=== PATIENT | male | born 1955 | race Caucasian/White ===

== ENCOUNTER 2018-03-09 11:11 | Inpatient (IN) ==
--- NOTE | 2018-03-09 11:55 | Emergency Department Note ---
Disposition Clinical Impression: Gluteal abscess, VERNA (acute kidney injury) Cellulitis Qualifiers: Site of cellulitis: extremity Site of cellulitis of extremity: lower extremity Laterality: left Qualified Code(s): L03.116 - Cellulitis of left lower limb Sepsis Qualifiers: Sepsis type: sepsis due to unspecified organism Qualified Code(s): A41.9 - Sepsis, unspecified organism Hyperglycemia due to type 2 diabetes mellitus Qualifiers: Diabetes mellitus terminal superintendent insulin use: with terminal superintendent use Qualified Code(s): E11.65 - Type 2 diabetes mellitus with hyperglycemia Disposition: Admitted As Inpatient Condition: Fair Time of Disposition: 23:50 Skin/Abscess/FB HPI Chief complaint: ED Skin/Abscess/Foreign Body Stated complaint: Diabetic Skin Ulcer Time Seen by Provider: 03/09/18 11:21 Source: patient Mode of arrival: wheelchair Limitations: no limitations HPI Narrative: Michael Dixon is a 62 yr old male with a PMH of insulin dependent type 2 diabetes who presents with a CC of a diabetic ulcer/ abscess formation on his left buttock that began apprx 2-3 weeks ago. Patient reports that his sugars have been higher than normal lately, running in the mid 300's. He believes that his last Ac1 was over 10%. 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 Patient only endorses pain if he sits on the area and as long as he does not put pressure on the are he does not endorse any symptoms. He denies any f/c, nausea or vomiting. Tetanus is up to date Pt Subjective Complaint: abscess/boil Onset (ago): week(s) (roughly 2-3 weeks ago) Tetanus Up to Date: yes Location: buttocks (Left Buttock) Severity: mild Quality: aching (Pain when sitting ) Consistency: intermittent Improves with: other (Positional ) Worsens with: other (Pressure) Context: other (Insulin dependent diabetic ) Associated symptoms: Denies: fever, chills, nausea, vomiting, cough, shortness of breath Treatments prior to arrival: none, other (Sent from PCP ) Home Medications Medication Instructions Recorded Confirmed Allopurinol [Zyloprim 100 MG] 100 mg PO DAILY 03/09/18 03/09/18 Diltiazem [Cardizem] 30 mg PO HS 03/09/18 03/09/18 Furosemide [Lasix] 20 mg PO DAILY PRN 03/09/18 03/09/18 Gabapentin [Neurontin] 300 mg PO TID 03/09/18 03/09/18 Insulin Glargine,Hum.rec.anlog 50 unit SQ BID 03/09/18 03/09/18 [Lantus Solostar] Insulin LISPRO [Humalog Kwikpen 0 - 20 unit SQ BID 03/09/18 03/09/18 U-100] Metformin HCl [Glucophage] 1,000 mg PO BID 03/09/18 03/09/18 Omeprazole [PriLOSEC] 20 mg PO DAILY 03/09/18 03/09/18 RX: Amlodipine Besylate 2.5 mg PO DAILY 03/09/18 03/09/18 RX: hydroCHLOROthiazide 25 mg PO DAILY 03/09/18 03/09/18 [Hydrochlorothiazide] Allergies Allergy/AdvReac Type Severity Reaction Status Date / Time No Known Allergies Allergy Verified 02/22/18 12:17 All systems ED: reviewed and negative except as stated. Constitutional: Denies: fever, chills Eyes: Denies: vision change Cardiovascular: Denies: chest pain, palpitations Respiratory: Denies: dyspnea, wheezes Gastrointestinal: Denies: abdominal pain, nausea, vomiting Genitourinary: Denies: dysuria Integumentary: Reports: lesions (2 abscesses on left buttocks. One abscess draining purulent material) Neurological: Denies: headache Endocrine: Denies: polydipsia, polyuria Past Medical History - Past Medical History Medical history: Reports: diabetes, GERD, hyperlipidemia Psychiatric history: Reports: no psych history - Social History Smoking Status: Current every day smoker Smokeless Tobacco Status: No Alcohol use: Reports: none Drug use: Reports: none Physical Exam - General Limitations: no limitations General appearance: alert, in no apparent distress - ENT ENT exam: mucous membranes moist - Chest Chest inspection: Present: normal inspection, symmetric chest wall rise - Respiratory Respiratory exam: Present: normal lung sounds bilaterally. Absent: respiratory distress, wheezes - Cardiovascular Cardiovascular exam: Present: regular rate, normal rhythm. Absent: tachycardia - Abdominal Exam Abdominal exam: Present: soft, Non-Tender. Absent: distention, guarding, rebound - Extremities Exam Extremities exam: Absent: pedal edema - Expanded Lower Extremity Exam 1 - developing ulceration Neurovascular/Tendon exam: Present: sensory deficit - Neurological Exam Neurological exam: Present: alert - Psychiatric Psychiatric exam: Present: normal affect - Skin Skin exam: Present: other (draining ulceration/abscess apprx 8cm x 5cm on upper left buttock. Second abscess on lower left buttick with apprx [id number] of induration) Course Vital Signs Temperature 97.7 F 03/09/18 11:24 Respiratory Rate 18 03/09/18 11:24 Blood Pressure 118/69 03/09/18 11:24 Temperature 98.4 F 03/09/18 20:00 Pulse Rate 97 03/09/18 20:00 Respiratory Rate 14 03/09/18 20:00 Blood Pressure 137/76 03/09/18 20:00 O2 Sat by Pulse Oximetry 92 03/09/18 20:00 Oxygen Delivery Oxygen Delivery Room Air Skin/Abscess/Foreign Body - Lab Data Result diagrams: 03/09/18 12:27 03/09/18 12:27 Lab Results 03/09/18 03/09/18 03/09/18 Range/Units 12:27 12:27 12:27 WBC 24.0 H (4.3-11.1) K/mcL RBC 4.38 (4.19-5.50) M/mcL Hgb 12.1 L (12.9-16.9) g/dL Hct 37.1 L (37.5-50.1) % MCV 84.7 (83.0-100.0) fL MCH 27.6 L (28.0-33.3) pg MCHC 32.6 (31.6-35.5) g/dL RDW 12.6 (11.5-14.5) % Plt Count 388 (140-400) K/mcL MPV 10.7 (9.4-12.4) fL Immature Gran % 1.1 (0-4) % Seg Neutrophils % 81.0 % Lymphocytes % 8.3 % Monocytes % 7.6 % Eosinophils % 1.5 % Basophils % 0.5 % Neutrophils # 19.4 H (1.6-8.9) K/mcL Lymphocytes # 2.0 (0.6-4.6) K/mcL Monocytes # 1.8 H (0.0-1.3) K/mcL Eosinophils # 0.4 (0.0-0.6) K/mcL Basophils # 0.1 (0.0-0.2) K/mcL ESR (0-10) mm/hr Sodium 131 L (136-145) mEq/L Potassium 4.0 (3.5-5.1) mEq/L Chloride 91 L (98-107) mEq/L Carbon Dioxide 25 (23-29) mEq/L BUN 51 H (8-23) mg/dL Creatinine 1.96 H (0.70-1.30) mg/dL Est GFR ( Amer) 42 L (> 60) Est GFR (Non-Af Amer) 35 L (> 60) BUN/Creatinine Ratio 26 (6-26) Glucose 411 H (70-105) mg/dL Calculated Osmolality 303 H (280-300) Lactic Acid 3.6 H (0.5-2.2) mmol/L Calcium 9.8 (8.6-10.3) mg/dL Creatine Kinase 18 L (30-223) Units/L C-Reactive Protein (Less than 10) mg/L Urine Color (Yellow) Urine Clarity (Clear) Urine pH (5.0-8.0) pH Units Ur Specific [place] (1.010-1.025) Urine Protein (Neg-Trace) mg/dL Urine Glucose (UA) (Normal) mg/dL Urine Ketones (Negative) mg/dL Urine Blood (Negative) Urine Nitrite (Negative) Urine Bilirubin (Negative) Urine Urobilinogen (Normal) mg/dL Ur Leukocyte Esterase (Negative) Ur Culture Indicated? (NO) 03/09/18 03/09/18 03/09/18 Range/Units 12:27 12:27 15:56 WBC (4.3-11.1) K/mcL RBC (4.19-5.50) M/mcL Hgb (12.9-16.9) g/dL Hct (37.5-50.1) % MCV (83.0-100.0) fL MCH (28.0-33.3) pg MCHC (31.6-35.5) g/dL RDW (11.5-14.5) % Plt Count (140-400) K/mcL MPV (9.4-12.4) fL Immature Gran % (0-4) % Seg Neutrophils % % Lymphocytes % % Monocytes % % Eosinophils % % Basophils % % Neutrophils # (1.6-8.9) K/mcL Lymphocytes # (0.6-4.6) K/mcL Monocytes # (0.0-1.3) K/mcL Eosinophils # (0.0-0.6) K/mcL Basophils # (0.0-0.2) K/mcL ESR 80 H (0-10) mm/hr Sodium (136-145) mEq/L Potassium (3.5-5.1) mEq/L Chloride (98-107) mEq/L Carbon Dioxide (23-29) mEq/L BUN (8-23) mg/dL Creatinine (0.70-1.30) mg/dL Est GFR ( Amer) (> 60) Est GFR (Non-Af Amer) (> 60) BUN/Creatinine Ratio (6-26) Glucose (70-105) mg/dL Calculated Osmolality (280-300) Lactic Acid (0.5-2.2) mmol/L Calcium (8.6-10.3) mg/dL Creatine Kinase (30-223) Units/L C-Reactive Protein 151 H (Less than 10) mg/L Urine Color Yellow (Yellow) Urine Clarity Clear (Clear) Urine pH 6.0 (5.0-8.0) pH Units Ur Specific [place] 1.022 (1.010-1.025) Urine Protein Negative (Neg-Trace) mg/dL Urine Glucose (UA) >=1000 H (Normal) mg/dL Urine Ketones Negative (Negative) mg/dL Urine Blood Negative (Negative) Urine Nitrite Negative (Negative) Urine Bilirubin Negative (Negative) Urine Urobilinogen Normal (Normal) mg/dL Ur Leukocyte Esterase Negative (Negative) Ur Culture Indicated? NO (NO) 03/09/18 Range/Units 17:10 WBC (4.3-11.1) K/mcL RBC (4.19-5.50) M/mcL Hgb (12.9-16.9) g/dL Hct (37.5-50.1) % MCV (83.0-100.0) fL MCH (28.0-33.3) pg MCHC (31.6-35.5) g/dL RDW (11.5-14.5) % Plt Count (140-400) K/mcL MPV (9.4-12.4) fL Immature Gran % (0-4) % Seg Neutrophils % % Lymphocytes % % Monocytes % % Eosinophils % % Basophils % % Neutrophils # (1.6-8.9) K/mcL Lymphocytes # (0.6-4.6) K/mcL Monocytes # (0.0-1.3) K/mcL Eosinophils # (0.0-0.6) K/mcL Basophils # (0.0-0.2) K/mcL ESR (0-10) mm/hr Sodium (136-145) mEq/L Potassium (3.5-5.1) mEq/L Chloride (98-107) mEq/L Carbon Dioxide (23-29) mEq/L BUN (8-23) mg/dL Creatinine (0.70-1.30) mg/dL Est GFR ( Amer) (> 60) Est GFR (Non-Af Amer) (> 60) BUN/Creatinine Ratio (6-26) Glucose (70-105) mg/dL Calculated Osmolality (280-300) Lactic Acid 2.6 H (0.5-2.2) mmol/L Calcium (8.6-10.3) mg/dL Creatine Kinase (30-223) Units/L C-Reactive Protein (Less than 10) mg/L Urine Color (Yellow) Urine Clarity (Clear) Urine pH (5.0-8.0) pH Units Ur Specific [place] (1.010-1.025) Urine Protein (Neg-Trace) mg/dL Urine Glucose (UA) (Normal) mg/dL Urine Ketones (Negative) mg/dL Urine Blood (Negative) Urine Nitrite (Negative) Urine Bilirubin (Negative) Urine Urobilinogen (Normal) mg/dL Ur Leukocyte Esterase (Negative) Ur Culture Indicated? (NO) Attestation Statement - Attestation Attestation: I, Priyank Botello DO, examined this patient [id number] and my medical decision-making was reviewed with Pranav REYES-CHRISTIAN. I agree with the docum ented findings, disposition and treatment plan as described except to the extent set forth below. Please see my progress notes for details.
[2018-03-09] MEDS ORDERED: 0.9 % Sodium Chloride 1,000 ML IVC ONE ×2 (12:04→13:22)
[2018-03-09] MEDS ORDERED: Isovue-370 500 ML INFUS..BTL IV ONE (12:05)
[2018-03-09] MEDS ORDERED: Piperacillin/Tazobactam 3.375 GM in Water for inj. (sterile) 20 ML IVP ONE (12:06)
--- NOTE | 2018-03-09 12:08 | Emergency Department Note ---
Disposition Clinical Impression: Gluteal abscess, VERNA (acute kidney injury) Cellulitis Qualifiers: Site of cellulitis: extremity Site of cellulitis of extremity: lower extremity Laterality: left Qualified Code(s): L03.116 - Cellulitis of left lower limb Sepsis Qualifiers: Sepsis type: sepsis due to unspecified organism Qualified Code(s): A41.9 - Sepsis, unspecified organism Hyperglycemia due to type 2 diabetes mellitus Qualifiers: Diabetes mellitus [employer] worker insulin use: with alf use Qualified Code(s): E11.65 - Type 2 diabetes mellitus with hyperglycemia Disposition: Admitted As Inpatient Condition: Fair Time of Disposition: 16:26 Skin/Abscess/FB HPI Chief complaint: ED Skin/Abscess/Foreign Body Stated complaint: Diabetic Skin Ulcer Time Seen by Provider: 03/09/18 11:21 Source: patient Mode of arrival: wheelchair Limitations: no limitations Nursing Notes Reviewed: Yes Vital Signs Reviewed: Yes HPI Narrative: 62-year-old male history of insulin-dependent diabetes mellitus presents emergency department with abscess and buttock ulcer. 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 Reports over the past 2 to 3 weeks he is formed and ulcer to his left but oxygen that is now draining with a foul smell. Reports of any fever. His sugars have been running higher than usual mostly in the mid 300s. He states his sugars have been uncontrolled in the past. 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 It is painful to lay on his bottom. Denies any difficulty with urination or defecation. He denies any other co mplaints such as chest pain, shortness of breath, abdominal pain nausea or vomiting. No history of cardiac ischemic disease. No prior surgeries. His tetanus is up-to-date. States he is not bedbound but does not move much. He denies anticoagulant use. Pt Subjective Complaint: abscess/boil Location: buttocks (Left Buttock) Severity: mild Improves with: other (Positional ) Worsens with: other (Pressure) Associated symptoms: Denies: fever, chills, nausea, vomiting, cough, shortness of breath Home Medications Medication Instructions Recorded Confirmed Allopurinol [Zyloprim 100 MG] 100 mg PO DAILY 03/09/18 03/09/18 Amlodipine Besylate 2.5 mg PO DAILY 03/09/18 03/09/18 Diltiazem [Cardizem] 30 mg PO HS 03/09/18 03/09/18 Furosemide [Lasix] 20 mg PO DAILY PRN 03/09/18 03/09/18 Gabapentin [Neurontin] 300 mg PO TID 03/09/18 03/09/18 Insulin Glargine,Hum.rec.anlog 50 unit SQ BID 03/09/18 03/09/18 [Lantus Solostar] Insulin LISPRO [Humalog Kwikpen 0 - 20 unit SQ BID 03/09/18 03/09/18 U-100] Metformin HCl [Glucophage] 1,000 mg PO BID 03/09/18 03/09/18 Omeprazole [PriLOSEC] 20 mg PO DAILY 03/09/18 03/09/18 hydroCHLOROthiazide 25 mg PO DAILY 03/09/18 03/09/18 [Hydrochlorothiazide] Allergies Allergy/AdvReac Type Severity Reaction Status Date / Time No Known Allergies Allergy Verified 02/22/18 12:17 All systems ED: reviewed and negative except as stated. Review of Systems: As Per HPI Constitutional: Denies: fever, chills Eyes: Denies: vision change Cardiovascular: Denies: chest pain, palpitations Respiratory: Denies: dyspnea, wheezes Gastrointestinal: Denies: abdominal pain, nausea, vomiting Genitourinary: Denies: dysuria Integumentary: Reports: lesions (2 abscesses on left buttocks. One abscess draining purulent material) Neurological: Denies: headache Endocrine: Reports: polydipsia. Denies: polyuria Past Medical History - Past Medical History Attestation: Yes The following information was validated with the patient. Source: patient Medical history: Reports: diabetes, GERD, hyperlipidemia Psychiatric history: Reports: no psych history - Social History Smoking Status: Current every day smoker Smokeless Tobacco Status: No Alcohol use: Reports: none Drug use: Reports: none Physical Exam - General Limitations: no limitations General appearance: alert, other (Patient appears chronically ill) - Head Head exam: normocephalic - Eye Eye exam: Present: normal appearance, PERRL, EOMI. Absent: scleral icterus - ENT ENT exam: normal exam, normal oropharynx, mucous membranes moist - Neck Neck exam: Present: normal inspection, full ROM, trachea midline - Chest Chest inspection: Present: normal inspection, symmetric chest wall rise - Respiratory Respiratory exam: Present: normal lung sounds bilaterally. Absent: respiratory distress, wheezes - Cardiovascular Cardiovascular exam: Present: regular rate, normal rhythm, normal heart sounds - Expanded Cardiovascular Exam Peripheral pulses: 2+: radial (R), radial (L) - Abdominal Exam Abdominal exam: Present: soft, Non-Tender. Absent: tenderness, distention, guarding, rebound, rigidity - Male exam: Present: normal inspection. Absent: circumcised, testicular tenderness - Extremities Exam Extremities exam: Present: normal inspection, full ROM. Absent: tenderness, pedal edema - Back Exam Back exam: Present: normal inspection, full ROM. Absent: tenderness - Neurological Exam Neurological exam: Present: alert, oriented X3 - Psychiatric Psychiatric exam: Present: normal affect, normal mood - Skin Skin exam: Present: erythema. Absent: rash, cyanosis, diaphoresis - Expanded Skin Exam Type of lesion: Present: abscess, other (No crepitus around the perineum or scrotum, he has a large skin graft from prior MRSA infection to the right scapula) Distribution: back, LLE Description: Present: fluctuant, indurated 1 - Large lesion to the left gluteus with some necrotic tissue superficially with some active drainage concerning for abscess 2 - Large area of erythema and induration to the left leg below the gluteal fold, there is no crepitus Course Course Narrative: Patient presents with ulceration and abscess to left buttock and left lower extremity. Patient is afebrile mildly tachycardic. There is no palpable crepitus to the perineum or scrotum. There is some necrotic tissue to both sites with obvious fluctuance and drainage. Concern for soft tissue infection which includes Fornier Gangrene. Will check some basic labs which will include blood cultures, lactate, ESR, CRP as well as the CT of the abdomen and pelvis to better visualize the abscess. Patient will be recommended to be admitted if no surgical emergency is imminent. - Reevaluation(s) Reevaluation #1: Sepsis was identified. Patient has a significantly elevated leukocytosis and lactate level. He has received to liter normal saline. He remains hemodynamically stable. He has been started empirically on vancomycin and Zosyn given his history of M RSA infection as well as current likely soft tissue infection. Based on physical examination low suspicion for Nehemias Gangrene at this time. His creatinine level is significantly elevated represents acute kidney injury and possible dehydration. He is hyperglycemic which also attributes to his poor wound healing. CT scan of the abdomen and pelvis initially was ordered with contrast will now be noncontrast to further evaluate. Time: 13:15 Reevaluation #2: Patient CT scan shows multiple abscess with fluid filled a non-fluid filled structure. The one on the gluteal but off underreport showed some air but it is currently draining. There is none in the perineum. At this time patient would benefit admission for further treatment of the cellulitis and wound. He otherwise remains hemodynamically stable and is not meet septic shock. He may benefit from surgical consultation for possible debridement and drainage. He is in agreement with this plan at this time. He has been made NPO until further evaluation. Impression is gluteal abscess cellulitis sepsis hyperglycemia and acute kidney injury. - Consultations Consultation #1: On-call surgeon Dr. Tanner was consulted regarding the patient's abscess as requested by hospitalist. The surgeon will be happy to consult floor and evaluate the patient later today. In agreement with current antibiotic regimen. No further recommendations. Time: 16:05 Consultation #2: Spoke with on-call hospitalist calderon Vigil to admit for sepsis secondary to abscess and cellulitis. No further orders at this time Vital Signs Temperature 97.7 F 03/09/18 11:24 Respiratory Rate 18 03/09/18 11:24 Blood Pressure 118/69 03/09/18 11:24 Temperature 97.7 F 03/09/18 11:24 Pulse Rate 95 03/09/18 19:28 Respiratory Rate 16 03/09/18 19:28 Blood Pressure 135/66 03/09/18 19:28 O2 Sat by Pulse Oximetry 95 03/09/18 19:28 Oxygen Delivery Oxygen Delivery Room Air Skin/Abscess/Foreign Body - MDM Narrative Medical decision making narrative: Patient was discussed with my attending physician who agrees with ED management and final disposition. They independently evaluated the patient. Please refer to their attestation to this encounter for additional information. This note was generated by [employer] voice recognition software and as a result grammatical or spelling errors may occur using this program. - Medical Records Medical records reviewed: Yes I reviewed the patient's medical records. - Lab Data Lab results reviewed: Yes I reviewed the patient's lab results. Result diagrams: 03/09/18 12:27 03/09/18 12:27 Lab Results 03/09/18 03/09/18 03/09/18 Range/Units 12:27 12:27 12:27 WBC 24.0 H (4.3-11.1) K/mcL RBC 4.38 (4.19-5.50) M/mcL Hgb 12.1 L (12.9-16.9) g/dL Hct 37.1 L (37.5-50.1) % MCV 84.7 (83.0-100.0) fL MCH 27.6 L (28.0-33.3) pg MCHC 32.6 (31.6-35.5) g/dL RDW 12.6 (11.5-14.5) % Plt Count 388 (140-400) K/mcL MPV 10.7 (9.4-12.4) fL Immature Gran % 1.1 (0-4) % Seg Neutrophils % 81.0 % Lymphocytes % 8.3 % Monocytes % 7.6 % Eosinophils % 1.5 % Basophils % 0.5 % Neutrophils # 19.4 H (1.6-8.9) K/mcL Lymphocytes # 2.0 (0.6-4.6) K/mcL Monocytes # 1.8 H (0.0-1.3) K/mcL Eosinophils # 0.4 (0.0-0.6) K/mcL Basophils # 0.1 (0.0-0.2) K/mcL ESR (0-10) mm/hr Sodium 131 L (136-145) mEq/L Potassium 4.0 (3.5-5.1) mEq/L Chloride 91 L (98-107) mEq/L Carbon Dioxide 25 (23-29) mEq/L BUN 51 H (8-23) mg/dL Creatinine 1.96 H (0.70-1.30) mg/dL Est GFR ( Amer) 42 L (> 60) Est GFR (Non-Af Amer) 35 L (> 60) BUN/Creatinine Ratio 26 (6-26) Glucose 411 H (70-105) mg/dL Calculated Osmolality 303 H (280-300) Lactic Acid 3.6 H (0.5-2.2) mmol/L Calcium 9.8 (8.6-10.3) mg/dL Creatine Kinase 18 L (30-223) Units/L C-Reactive Protein (Less than 10) mg/L Urine Color (Yellow) Urine Clarity (Clear) Urine pH (5.0-8.0) pH Units Ur Specific [place] (1.010-1.025) Urine Protein (Neg-Trace) mg/dL Urine Glucose (UA) (Normal) mg/dL Urine Ketones (Negative) mg/dL Urine Blood (Negative) Urine Nitrite (Negative) Urine Bilirubin (Negative) Urine Urobilinogen (Normal) mg/dL Ur Leukocyte Esterase (Negative) Ur Culture Indicated? (NO) 03/09/18 03/09/18 03/09/18 Range/Units 12:27 12:27 15:56 WBC (4.3-11.1) K/mcL RBC (4.19-5.50) M/mcL Hgb (12.9-16.9) g/dL Hct (37.5-50.1) % MCV (83.0-100.0) fL MCH (28.0-33.3) pg MCHC (31.6-35.5) g/dL RDW (11.5-14.5) % Plt Count (140-400) K/mcL MPV (9.4-12.4) fL Immature Gran % (0-4) % Seg Neutrophils % % Lymphocytes % % Monocytes % % Eosinophils % % Basophils % % Neutrophils # (1.6-8.9) K/mcL Lymphocytes # (0.6-4.6) K/mcL Monocytes # (0.0-1.3) K/mcL Eosinophils # (0.0-0.6) K/mcL Basophils # (0.0-0.2) K/mcL ESR 80 H (0-10) mm/hr Sodium (136-145) mEq/L Potassium (3.5-5.1) mEq/L Chloride (98-107) mEq/L Carbon Dioxide (23-29) mEq/L BUN (8-23) mg/dL Creatinine (0.70-1.30) mg/dL Est GFR ( Amer) (> 60) Est GFR (Non-Af Amer) (> 60) BUN/Creatinine Ratio (6-26) Glucose (70-105) mg/dL Calculated Osmolality (280-300) Lactic Acid (0.5-2.2) mmol/L Calcium (8.6-10.3) mg/dL Creatine Kinase (30-223) Units/L C-Reactive Protein 151 H (Less than 10) mg/L Urine Color Yellow (Yellow) Urine Clarity Clear (Clear) Urine pH 6.0 (5.0-8.0) pH Units Ur Specific [place] 1.022 (1.010-1.025) Urine Protein Negative (Neg-Trace) mg/dL Urine Glucose (UA) >=1000 H (Normal) mg/dL Urine Ketones Negative (Negative) mg/dL Urine Blood Negative (Negative) Urine Nitrite Negative (Negative) Urine Bilirubin Negative (Negative) Urine Urobilinogen Normal (Normal) mg/dL Ur Leukocyte Esterase Negative (Negative) Ur Culture Indicated? NO (NO) 03/09/18 Range/Units 17:10 WBC (4.3-11.1) K/mcL RBC (4.19-5.50) M/mcL Hgb (12.9-16.9) g/dL Hct (37.5-50.1) % MCV (83.0-100.0) fL MCH (28.0-33.3) pg MCHC (31.6-35.5) g/dL RDW (11.5-14.5) % Plt Count (140-400) K/mcL MPV (9.4-12.4) fL Immature Gran % (0-4) % Seg Neutrophils % % Lymphocytes % % Monocytes % % Eosinophils % % Basophils % % Neutrophils # (1.6-8.9) K/mcL Lymphocytes # (0.6-4.6) K/mcL Monocytes # (0.0-1.3) K/mcL Eosinophils # (0.0-0.6) K/mcL Basophils # (0.0-0.2) K/mcL ESR (0-10) mm/hr Sodium (136-145) mEq/L Potassium (3.5-5.1) mEq/L Chloride (98-107) mEq/L Carbon Dioxide (23-29) mEq/L BUN (8-23) mg/dL Creatinine (0.70-1.30) mg/dL Est GFR ( Amer) (> 60) Est GFR (Non-Af Amer) (> 60) BUN/Creatinine Ratio (6-26) Glucose (70-105) mg/dL Calculated Osmolality (280-300) Lactic Acid 2.6 H (0.5-2.2) mmol/L Calcium (8.6-10.3) mg/dL Creatine Kinase (30-223) Units/L C-Reactive Protein (Less than 10) mg/L Urine Color (Yellow) Urine Clarity (Clear) Urine pH (5.0-8.0) pH Units Ur Specific [place] (1.010-1.025) Urine Protein (Neg-Trace) mg/dL Urine Glucose (UA) (Normal) mg/dL Urine Ketones (Negative) mg/dL Urine Blood (Negative) Urine Nitrite (Negative) Urine Bilirubin (Negative) Urine Urobilinogen (Normal) mg/dL Ur Leukocyte Esterase (Negative) Ur Culture Indicated? (NO) - Radiology Data Radiology results reviewed: Yes I reviewed the patient's radiology results. Abdomen/Pelvis CT 03/09/18 13:31 IMPRESSION: 1. Findings most compatible with an abscess within the left gluteal soft tissues measuring up to 6 cm in greatest dimension, as described in body of report. 2. Findings most compatible with subacute fractures of the posterior right 7th, 8th and 9th ribs. These are incompletely imaged on the current examination. If there is clinical concern for acute injury to the thorax, dedicated noncontrast CT of the thorax is recommended. 3. Possible cellulitis overlying the left greater trochanter, correlate with clinical exam. 4. Non-organized fluid collection within the soft tissues of the posterior left thigh measuring up to 4.8 cm, as described above. D/ / 03/09/2018 15:11:50 James Ford / isak Interpreting Provider: James Ford Attestation Statement - Attestation Attestation: I, Priyank Botello DO, examined this patient [id number] and my medical decision-making was reviewed with Dany Murcia DO , Resident Physician. I agree with the documented findings, disposition and treatment plan as described except to the extent set forth below. Please see my progress notes for details.
--- NOTE | 2018-03-09 13:07 | Emergency Department Note ---
Disposition Clinical Impression: Gluteal abscess, VERNA (acute kidney injury) Cellulitis Qualifiers: Site of cellulitis: extremity Site of cellulitis of extremity: lower extremity Laterality: left Qualified Code(s): L03.116 - Cellulitis of left lower limb Sepsis Qualifiers: Sepsis type: sepsis due to unspecified organism Qualified Code(s): A41.9 - Sepsis, unspecified organism Hyperglycemia due to type 2 diabetes mellitus Qualifiers: Diabetes mellitus knock out hand insulin use: with knock out hand use Qualified Code(s): E11.65 - Type 2 diabetes mellitus with hyperglycemia Disposition: Admitted As Inpatient Condition: Fair Referrals: NONE,PCP [Primary Care Provider] - Forms: ED Satisfaction Letter Time of Disposition: 17:51 General Adult HPI - General Chief complaint: ED Skin/Abscess/Foreign Body Stated complaint: Diabetic Skin Ulcer Time Seen by Provider: 03/09/18 11:21 Source: patient Mode of arrival: wheelchair Limitations: no limitations - History of Present Illness Pain Scale: 4 - Related Data Home Medications Medication Instructions Recorded Confirmed Allopurinol [Zyloprim 100 MG] 100 mg PO DAILY 03/09/18 03/09/18 Amlodipine Besylate 2.5 mg PO DAILY 03/09/18 03/09/18 Diltiazem [Cardizem] 30 mg PO HS 03/09/18 03/09/18 Furosemide [Lasix] 20 mg PO DAILY PRN 03/09/18 03/09/18 Gabapentin [Neurontin] 300 mg PO TID 03/09/18 03/09/18 Insulin Glargine,Hum.rec.anlog 50 unit SQ BID 03/09/18 03/09/18 [Lantus Solostar] Insulin LISPRO [Humalog Kwikpen 0 - 20 unit SQ BID 03/09/18 03/09/18 U-100] Metformin HCl [Glucophage] 1,000 mg PO BID 03/09/18 03/09/18 Omeprazole [PriLOSEC] 20 mg PO DAILY 03/09/18 03/09/18 hydroCHLOROthiazide 25 mg PO DAILY 03/09/18 03/09/18 [Hydrochlorothiazide] Allergies Allergy/AdvReac Type Severity Reaction Status Date / Time No Known Allergies Allergy Verified 02/22/18 12:17 Constitutional: Denies: fever, chills Eyes: Denies: vision change Cardiovascular: Denies: chest pain, palpitations Respiratory: Denies: dyspnea, wheezes Gastrointestinal: Denies: abdominal pain, nausea, vomiting Genitourinary: Denies: dysuria Integumentary: Reports: lesions (2 abscesses on left buttocks. One abscess draining purulent material) Neurological: Denies: headache Endocrine: Reports: polydipsia. Denies: polyuria Past Medical History - Past Medical History Medical history: Reports: diabetes, GERD, hyperlipidemia Psychiatric history: Reports: no psych history - Social History Smoking Status: Current every day smoker Smokeless Tobacco Status: No Alcohol use: Reports: none Drug use: Reports: none Physical Exam - General Limitations: no limitations General appearance: alert, in no apparent distress Course Vital Signs Temperature 97.7 F 03/09/18 11:24 Respiratory Rate 18 03/09/18 11:24 Blood Pressure 118/69 03/09/18 11:24 Temperature 97.7 F 03/09/18 11:24 Pulse Rate 85 03/09/18 16:29 Respiratory Rate 16 03/09/18 16:29 Blood Pressure 153/55 03/09/18 16:29 O2 Sat by Pulse Oximetry 96 03/09/18 16:29 Oxygen Delivery Oxygen Delivery Room Air Medical Decision Making - Lab Data Result diagrams: 03/09/18 12:27 03/09/18 12:27 Lab Results 03/09/18 03/09/18 03/09/18 Range/Units 12:27 12:27 12:27 WBC 24.0 H (4.3-11.1) K/mcL RBC 4.38 (4.19-5.50) M/mcL Hgb 12.1 L (12.9-16.9) g/dL Hct 37.1 L (37.5-50.1) % MCV 84.7 (83.0-100.0) fL MCH 27.6 L (28.0-33.3) pg MCHC 32.6 (31.6-35.5) g/dL RDW 12.6 (11.5-14.5) % Plt Count 388 (140-400) K/mcL MPV 10.7 (9.4-12.4) fL Immature Gran % 1.1 (0-4) % Seg Neutrophils % 81.0 % Lymphocytes % 8.3 % Monocytes % 7.6 % Eosinophils % 1.5 % Basophils % 0.5 % Neutrophils # 19.4 H (1.6-8.9) K/mcL Lymphocytes # 2.0 (0.6-4.6) K/mcL Monocytes # 1.8 H (0.0-1.3) K/mcL Eosinophils # 0.4 (0.0-0.6) K/mcL Basophils # 0.1 (0.0-0.2) K/mcL ESR (0-10) mm/hr Sodium 131 L (136-145) mEq/L Potassium 4.0 (3.5-5.1) mEq/L Chloride 91 L (98-107) mEq/L Carbon Dioxide 25 (23-29) mEq/L BUN 51 H (8-23) mg/dL Creatinine 1.96 H (0.70-1.30) mg/dL Est GFR ( Amer) 42 L (> 60) Est GFR (Non-Af Amer) 35 L (> 60) BUN/Creatinine Ratio 26 (6-26) Glucose 411 H (70-105) mg/dL Calculated Osmolality 303 H (280-300) Lactic Acid 3.6 H (0.5-2.2) mmol/L Calcium 9.8 (8.6-10.3) mg/dL Creatine Kinase 18 L (30-223) Units/L C-Reactive Protein (Less than 10) mg/L Urine Color (Yellow) Urine Clarity (Clear) Urine pH (5.0-8.0) pH Units Ur Specific [place] (1.010-1.025) Urine Protein (Neg-Trace) mg/dL Urine Glucose (UA) (Normal) mg/dL Urine Ketones (Negative) mg/dL Urine Blood (Negative) Urine Nitrite (Negative) Urine Bilirubin (Negative) Urine Urobilinogen (Normal) mg/dL Ur Leukocyte Esterase (Negative) Ur Culture Indicated? (NO) 03/09/18 03/09/18 03/09/18 Range/Units 12:27 12:27 15:56 WBC (4.3-11.1) K/mcL RBC (4.19-5.50) M/mcL Hgb (12.9-16.9) g/dL Hct (37.5-50.1) % MCV (83.0-100.0) fL MCH (28.0-33.3) pg MCHC (31.6-35.5) g/dL RDW (11.5-14.5) % Plt Count (140-400) K/mcL MPV (9.4-12.4) fL Immature Gran % (0-4) % Seg Neutrophils % % Lymphocytes % % Monocytes % % Eosinophils % % Basophils % % Neutrophils # (1.6-8.9) K/mcL Lymphocytes # (0.6-4.6) K/mcL Monocytes # (0.0-1.3) K/mcL Eosinophils # (0.0-0.6) K/mcL Basophils # (0.0-0.2) K/mcL ESR 80 H (0-10) mm/hr Sodium (136-145) mEq/L Potassium (3.5-5.1) mEq/L Chloride (98-107) mEq/L Carbon Dioxide (23-29) mEq/L BUN (8-23) mg/dL Creatinine (0.70-1.30) mg/dL Est GFR ( Amer) (> 60) Est GFR (Non-Af Amer) (> 60) BUN/Creatinine Ratio (6-26) Glucose (70-105) mg/dL Calculated Osmolality (280-300) Lactic Acid (0.5-2.2) mmol/L Calcium (8.6-10.3) mg/dL Creatine Kinase (30-223) Units/L C-Reactive Protein 151 H (Less than 10) mg/L Urine Color Yellow (Yellow) Urine Clarity Clear (Clear) Urine pH 6.0 (5.0-8.0) pH Units Ur Specific [place] 1.022 (1.010-1.025) Urine Protein Negative (Neg-Trace) mg/dL Urine Glucose (UA) >=1000 H (Normal) mg/dL Urine Ketones Negative (Negative) mg/dL Urine Blood Negative (Negative) Urine Nitrite Negative (Negative) Urine Bilirubin Negative (Negative) Urine Urobilinogen Normal (Normal) mg/dL Ur Leukocyte Esterase Negative (Negative) Ur Culture Indicated? NO (NO) 03/09/18 Range/Units 17:10 WBC (4.3-11.1) K/mcL RBC (4.19-5.50) M/mcL Hgb (12.9-16.9) g/dL Hct (37.5-50.1) % MCV (83.0-100.0) fL MCH (28.0-33.3) pg MCHC (31.6-35.5) g/dL RDW (11.5-14.5) % Plt Count (140-400) K/mcL MPV (9.4-12.4) fL Immature Gran % (0-4) % Seg Neutrophils % % Lymphocytes % % Monocytes % % Eosinophils % % Basophils % % Neutrophils # (1.6-8.9) K/mcL Lymphocytes # (0.6-4.6) K/mcL Monocytes # (0.0-1.3) K/mcL Eosinophils # (0.0-0.6) K/mcL Basophils # (0.0-0.2) K/mcL ESR (0-10) mm/hr Sodium (136-145) mEq/L Potassium (3.5-5.1) mEq/L Chloride (98-107) mEq/L Carbon Dioxide (23-29) mEq/L BUN (8-23) mg/dL Creatinine (0.70-1.30) mg/dL Est GFR ( Amer) (> 60) Est GFR (Non-Af Amer) (> 60) BUN/Creatinine Ratio (6-26) Glucose (70-105) mg/dL Calculated Osmolality (280-300) Lactic Acid 2.6 H (0.5-2.2) mmol/L Calcium (8.6-10.3) mg/dL Creatine Kinase (30-223) Units/L C-Reactive Protein (Less than 10) mg/L Urine Color (Yellow) Urine Clarity (Clear) Urine pH (5.0-8.0) pH Units Ur Specific [place] (1.010-1.025) Urine Protein (Neg-Trace) mg/dL Urine Glucose (UA) (Normal) mg/dL Urine Ketones (Negative) mg/dL Urine Blood (Negative) Urine Nitrite (Negative) Urine Bilirubin (Negative) Urine Urobilinogen (Normal) mg/dL Ur Leukocyte Esterase (Negative) Ur Culture Indicated? (NO) Attestation Statement - Attestation Attestation: I, Priyank Botello DO, examined this patient [id number] and my medical decision-making was reviewed with Dany Murcia DO , Resident Physician. I agree with the documented findings, disposition and treatment plan as described except to the extent set forth below. Please see my progress notes for details. 62-year-old male presents to the emergency room for evaluation of pain that is persistently getting worse and his buttock and left leg. Patient typically sits in a chair for extended periods of time home. He has 2 caretakers it helped with his chores throughout the day. Patient has poorly controlled diabetes. On presentation here his only complaint is the buttock pain and discomfort. Currently, he is denying chest pain, shortness of breath, headache, vision miranda ges, nausea, vomiting, diarrhea. No fevers or chills. Denied any falls trauma or injury. Denies any medications or changes in medications at this point. Tetanus shot is not currently up-to-date. On physical exam, vital signs are otherwise unremarkable on presentation. Patient is afebrile. Head is atraumatic. Mucous membranes are dry. Oropharynx is patent. Trachea is midline. Lungs are clear to auscultation. Heart is regular. Abdomen is soft nontender nondistended with no guarding no rigidity or peritoneal symptoms at this time. Left side of the buttock over the gluteal aspect of the medial time shows a large. Mineralization skin deterioration concerning for decubitus ulcer versus abscesses. Patient also has another area just distal to the gluteal fold on the medial aspect of the thigh. There is no crepitus deformity or injury noted to the perineum or genitalia. No visible signs of swelling warmth or irritation of the genitalia this time. Concern is noted for deterioration secondary pressure ulcer versus possible deep tissue infection. Antibiotic regimen will be started this time with vancomycin fluids blood cultures CBC chemistry urinalysis glucose testing and then CT with IV contrast of the abdomen will be completed at this point looking for any deep tissue involvement infection or possible abscess formation. Symptom control here in the emergency room and then disposition will be determined. No other acute etiology noted at this time. Continuation of care to be established. See detailed documentation of the physical exam, medical intervention, medical decision-making and disposition in the resident physician's note. No critical care applied to the patient's treatment course at this time 1315 Patient now has noted white blood cell count neutrophilia. We will consider him sepsis with a source of this point borderline severe sepsis secondary to the elevated lactic acid. Vital signs remain stable. Time of this diagnosis was 1315. [address] scan shows large abscesses in the buttock and medial gluteal fold of the left leg. No signs of free air or Nehemias's gangrene. Imaging was discussed with the on-call surgeon Dr. Dann Tanner. He agrees with medication and antibiotic regiment and then surgical evaluation the morning for possible wound debridement. Patient will be admitted at this time. Hospitalist Dr. Angel reviewed the case and had no other recommendations or concerns at this time. Patient will be admitted for continuation of care and symptomatic control. Patient is otherwise clinically stable. We will continue to monitor here in the emergency room until admission processes established. Labs were all reviewed. Chronic rib fractures are noted comparison to imaging from one year ago. No other acute findings at this time.
[2018-03-09 13:08] LABS: Basophils # 0.1 K/mcL (0.0-0.2); Basophils % 0.5 %; Eosinophils # 0.4 K/mcL (0.0-0.6); Eosinophils % 1.5 %; Hematocrit 37.1 % (37.5-50.1); Hemoglobin 12.1 g/dL (12.9-16.9); Immature Granulocytes % 1.1 % (0-4); Lymphocytes % 8.3 %; Mean Corpuscular HGB Conc 32.6 g/dL (31.6-35.5); Mean Corpuscular Hemoglobin 27.6 pg (28.0-33.3); Mean Corpuscular Volume 84.7 fL (83.0-100.0); Mean Platelet Volume 10.7 fL (9.4-12.4); Monocytes # 1.8 K/mcL (0.0-1.3); Monocytes % 7.6 %; Neutrophils # 19.4 K/mcL (1.6-8.9); Platelet Count 388 K/mcL (140-400); Red Blood Count 4.38 M/mcL (4.19-5.50); Red Cell Distribution Width 12.6 % (11.5-14.5)
[2018-03-09] MEDS ORDERED: Tdap (Boostrix) Vaccine 0.5 ML SYRINGE IM ONE (13:14)
[2018-03-09 13:27] LABS: Calcium 9.8 mg/dL (8.6-10.3)
[2018-03-09 16:09] LABS: Bilirubin,Urine Negative (Negative); Blood,Urine Negative (Negative); Clarity,Urine Clear (Clear); Color,Urine Yellow (Yellow); Glucose,Urine (UA) >=1000 mg/dL (Normal); Ketones,Urine Negative (Negative); Leukocyte Esterase,Urine Negative (Negative); Nitrite,Urine Negative (Negative); Protein,Urine Negative (Neg-Trace); Specific Gravity,Urine 1.022 (1.010-1.025); Urobilinogen,Urine Normal (Normal)
[2018-03-09] MEDS ORDERED: *HR* OxyCODONE Immed Rel 5 MG TABLET PO PRN (16:38)
[2018-03-09] MEDS ORDERED: Naloxone 0.4 MG/ML INJ IVP PRN (16:38)
[2018-03-09] MEDS ORDERED: Acetaminophen 325 MG TABLET PO PRN (16:38)
[2018-03-09] MEDS ORDERED: *HR* HYDROcodone/Acet 5/325 mg TABLET PO PRN (16:38)
[2018-03-09] MEDS ORDERED: 0.9 % Sodium Chloride 500 ML IVC PRN (16:39)
[2018-03-09] MEDS ORDERED: *HR* Dextrose 50 % in Water (Syg) 50 ML SYRINGE IVP PRN (16:42)
[2018-03-09] MEDS ORDERED: D5% in Water 1,000 ML IVC PRN (16:42)
[2018-03-09] MEDS ORDERED: Dextrose Gel 15 GM/37.5 ML TUBE PO PRN ×2 (16:42)
--- NOTE | 2018-03-09 16:55 | Internal Med History&Physical ---
Date of Encounter: 03/09/18 Time of Encounter: 16:45 Internal Medicine - H&P: HPI Chief complaint: L buttock ulcer Admitted From: Home History of present illness: Mr. Dixon is a 62 year old male with PMHx of DM, CKD, tobaccoabuse, presented to the ED with left buttock ulcer. Noticed it about 2-3 weeks ago but did not seek any medical advice as he didn't think it was serious enough. Patient however became concerned when it started draining purulent discharge about a week ago, which is foul smelling. States that it is also painful to sit on his buttock. No fever/chills or N/V. Denies any chest pain, SOB, cough, sputum production, change in bowel habits, or dysuria. His glucose have been poorly controlled recently as well and there is a question about his compliance to meds as well. In the ED, he was afebrile with heart rate of 95. BP stable. Initial workup showed leukocytosis of 24, lactic acid 3.6, ESR/CRP of 80/151 respectively. Cr 1.96 (baseline ~ 1.5). Glucose 411. Urinalysis was unremarkable. CT abdomen and pelvis showed left gluteal abscess as well as non- organized fluid collection in posterior thigh, in addition to cellulitis over L greater trochanteric region. Patient was given 2 L of fluid boluses, IV vancomycin/Zosyn, and admitted for further management. Past Med Surg Social Fam HX - Past Medical History Attestation: Yes The following information was validated with the patient. Medical history: diabetes, GERD, hyperlipidemia Psychiatric history: no psych history - Past Surgical History Additional surgical history: eye surgery - Social History Smoking Status: Current every day smoker Smokeless Tobacco Status: No Alcohol use: none Drug use: none - Family History Mother History Unknown: Yes Father History Unknown: Yes Internal Medicine - H&P: Meds Allopurinol [Zyloprim 100 MG] 100 mg PO DAILY 03/09/18 [History] Amlodipine Besylate 2.5 mg PO DAILY 03/09/18 [History] Diltiazem [Cardizem] 30 mg PO HS 03/09/18 [History] Furosemide [Lasix] 20 mg PO DAILY PRN 03/09/18 [History] Gabapentin [Neurontin] 300 mg PO TID 03/09/18 [History] Insulin Glargine,Hum.rec.anlog [Lantus Solostar] 50 unit SQ BID 03/09/18 [History] Insulin LISPRO [Humalog Kwikpen U-100] 0 - 20 unit SQ BID 03/09/18 [History] Metformin HCl [Glucophage] 1,000 mg PO BID 03/09/18 [History] Omeprazole [PriLOSEC] 20 mg PO DAILY 03/09/18 [History] hydroCHLOROthiazide [Hydrochlorothiazide] 25 mg PO DAILY 03/09/18 [History] Allergy/AdvReac Type Severity Reaction Status Date / Time No Known Allergies Allergy Verified 02/22/18 12:17 All Systems PM: A 10-system review of systems was performed and is negative for pertinent findings except as documented above in the HPI. - Constitutional Vitals: Temp Pulse Resp BP Pulse Ox 97.7 F 85 16 153/55 96 03/09/18 11:24 03/09/18 16:29 03/09/18 16:29 03/09/18 16:29 03/09/18 16:29 Exam: General: Alert and oriented, not in acute distress. HEENT:EOMI, pupils equal, round and reactive. Cardiovascular:Normal S1 & S2, No JVD. Pulse regular. Lungs: clear to auscultation, no wheezes/rales Abdomen:Soft, non-tender, no rigidity. Extremities:No deformity or swelling Neurological:Normal cognition and motor skills. Non-focal Skin: L buttock: 7x8cm area of erythema with fluctuance and central areas of necrosis, no obvious discharge expressed. Another 5x6 cm area of induration and redness noted in posterior L thigh medially, also with areas of necrosis and fluctuance. Pulses: DP, PT palpable Rest of the physical exam is non contributory Internal Med - H&P Results - Labs CBC & Chem 7: 03/09/18 12:27 03/09/18 12:27 Labs: Short CBC 03/09/18 Range/Units 12:27 WBC 24.0 H (4.3-11.1) K/mcL Hgb 12.1 L (12.9-16.9) g/dL Hct 37.1 L (37.5-50.1) % Plt Count 388 (140-400) K/mcL Neutrophils # 19.4 H (1.6-8.9) K/mcL BMP 03/09/18 12:27 Sodium 131 L Potassium 4.0 Chloride 91 L Carbon Dioxide 25 BUN 51 H Creatinine 1.96 H Glucose 411 H Calcium 9.8 Urine 03/09/18 Range/Units 15:56 Urine Color Yellow (Yellow) Urine Clarity Clear (Clear) Urine pH 6.0 (5.0-8.0) pH Units Ur Specific [place] 1.022 (1.010-1.025) Urine Protein Negative (Neg-Trace) mg/dL Urine Glucose (UA) >=1000 H (Normal) mg/dL - Impressions ITS Impressions Abdomen/Pelvis CT 03/09/18 13:31 IMPRESSION: 1. Findings most compatible with an abscess within the left gluteal soft tissues measuring up to 6 cm in greatest dimension, as described in body of report. 2. Findings most compatible with subacute fractures of the posterior right 7th, 8th and 9th ribs. These are incompletely imaged on the current examination. If there is clinical concern for acute injury to the thorax, dedicated noncontrast CT of the thorax is recommended. 3. Possible cellulitis overlying the left greater trochanter, correlate with clinical exam. 4. Non-organized fluid collection within the soft tissues of the posterior left thigh measuring up to 4.8 cm, as described above. D/ / 03/09/2018 15:11:50 James Ford / isak Interpreting Provider: James Ford - Assessment and plan (1) Sepsis Current Visit: Yes Status: Suspected Assessment and plan: presented with L buttock abscess in the setting of WBC 24 and lactate 3.6. HR 95 initially as well 2/4 SIRS criteria complicated by poorly controlled DM started on vanc/zosyn, continue surgery consult for I&D, NPO for now but if the procedure is planned for tomorrow, please start ADA diet given 2L NS bolus in the ED, trend lactate mIVF, PRN fluid boluses for hypotension Qualifiers: Sepsis type: sepsis due to unspecified organism Qualified Code(s): A41.9 - Sepsis, unspecified organism (2) Gluteal abscess Current Visit: Yes Status: Acute Assessment and plan: as above (3) Hyperglycemia due to type 2 diabetes mellitus Current Visit: Yes Status: Acute Assessment and plan: poorly controlled, last A1c 02/2018 was 10 on lantus 50U BID and metformin hold off on metformin resume lantus and cover with moderate dose sliding scale NPO for now in anticipation for procedure -> if scheduled for tomorrow, start ADA diet Qualifiers: Diabetes mellitus terminal operations supervisor insulin use: with terminal operations supervisor use Qualified Code( s): E11.65 - Type 2 diabetes mellitus with hyperglycemia; Z79.4 - roasterman (current) use of insulin (4) Acute on chronic kidney failure Current Visit: Yes Status: Acute Assessment and plan: ATN vs. pre-renal given 2L fluid boluses in the ED continue maintenance IVF avoid nephrotoxins, renally adjusted abx Qualifiers: Acute renal failure type: unspecified Chronic kidney disease stage: stage 3 (moderate) Qualified Code(s): N17.9 - Acute kidney failure, unspecified; N18.3 - Chronic kidney disease, stage 3 (moderate) (5) PAD (peripheral artery disease) Current Visit: Yes Status: Chronic Assessment and plan: KEAGAN 0.54 on R, 0.76 on L in 08/2016 unsure why patient is not on ASA at home will benefit from ASA as outpatient (6) Tobacco abuse Current Visit: Yes Status: Chronic Assessment and plan: counselling given NRT (7) Hypertension Current Visit: Yes Status: Chronic Assessment and plan: Hold off on meds in view of borderline blood pressure and AoCKD Qualifiers: Hypertension type: essential hypertension Qualified Code(s): I10 - Essential (primary) hypertension (8) DVT prophylaxis Current Visit: Yes Status: Acute Assessment and plan: SQ heparin - Time Spent With Patient Total time spent is greater than 50% in coordination of care (as documented) at patient's floor/unit and/or counseling patient:
[2018-03-09] MEDS ORDERED: Insulin LISPRO 300 UNITS/3 ML VIAL SQ SCH (18:00)
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
[2018-03-09] MEDS: Piperacillin/Tazobactam 3.375 GM in 0.9 % Sodium Chloride Mini Bag 100 ML IVPB SCH (21:27)
[2018-03-09] MEDS: *HR* Heparin 5,000 UNIT/ML VIAL SQ SCH (21:27)
[2018-03-09] MEDS: Gabapentin 300 MG CAPSULE PO SCH (21:28)
[2018-03-09] MEDS: 0.9 % Sodium Chloride 1,000 ML IVC SCH (21:28)
[2018-03-09] MEDS: Insulin DETEMIR 100 UNIT/ML X5UNITS SQ SCH (21:28)
[2018-03-09] MEDS: Insulin LISPRO 300 UNITS/3 ML VIAL SQ SCH (21:29)
[2018-03-10] MEDS: Piperacillin/Tazobactam 3.375 GM in 0.9 % Sodium Chloride Mini Bag 100 ML IVPB SCH ×3 (03:49→21:50)
[2018-03-10 04:00] LABS: Basophils # 0.1 K/mcL (0.0-0.2); Basophils % 0.5 %; Eosinophils # 0.6 K/mcL (0.0-0.6); Eosinophils % 2.5 %; Hematocrit 31.6 % (37.5-50.1); Hemoglobin 10.6 g/dL (12.9-16.9); Immature Granulocytes % 0.9 % (0-4); Lymphocytes # 3.2 K/mcL (0.6-4.6); Lymphocytes % 14.1 %; Mean Corpuscular HGB Conc 33.5 g/dL (31.6-35.5); Mean Corpuscular Volume 83.6 fL (83.0-100.0); Mean Platelet Volume 10.1 fL (9.4-12.4); Monocytes # 1.5 K/mcL (0.0-1.3); Monocytes % 6.6 %; Neutrophils # 16.8 K/mcL (1.6-8.9); Platelet Count 333 K/mcL (140-400); Red Blood Count 3.78 M/mcL (4.19-5.50); Red Cell Distribution Width 12.7 % (11.5-14.5); Segmented Neutrophils % 75.4 %
[2018-03-10 04:24] LABS: BUN/Creatinine Ratio 24 (6-26); Blood Urea Nitrogen 33 mg/dL (8-23); Carbon Dioxide 28 mEq/L (23-29); Chloride 101 mEq/L (98-107); Glucose 125 mg/dL (70-105); Magnesium 1.7 mg/dL (1.6-2.6); Osmolality,Calculated 293 (280-300); Potassium 3.2 mEq/L (3.5-5.1); Sodium 137 mEq/L (136-145); eGFR For Non-African Americans 52 (> 60)
[2018-03-10] MEDS: *HR* Heparin 5,000 UNIT/ML VIAL SQ SCH ×2 (05:57→16:42)
[2018-03-10] MEDS: Nicotine 21 MG PATCH.TD24 TD SCH (08:07)
[2018-03-10] MEDS: Gabapentin 300 MG CAPSULE PO SCH ×3 (08:08→21:49)
[2018-03-10] MEDS: Insulin DETEMIR 100 UNIT/ML X5UNITS SQ SCH ×2 (08:27→21:49)
--- NOTE | 2018-03-10 09:51 | Internal Med Progress Note ---
Hospitalist Progress Note - Encounter Date of Encounter: 03/10/18 Time of Encounter: 08:15 - Subjective Interval History: No acute events overnight. Denies any worsening pain or discharge over the left buttock. No fever/chills or nausea/vomiting. - Exam Vitals: Temp Pulse Resp BP Pulse Ox 100.7 F H 89 14 125/65 93 03/10/18 06:48 03/10/18 06:48 03/10/18 00:43 03/10/18 06:48 03/10/18 06:48 Exam: General: Alert and oriented, not in acute distress. Cardiovascular:Normal S1 & S2, No JVD. Pulse regular. Lungs: clear to auscultation, no wheezes/rales Abdomen:Soft, non-tender, no rigidity. Skin: L buttock: 7x8cm area of erythema with fluctuance and central areas of necrosis, no obvious discharge expressed. Another 5x6 cm area of induration and redness noted in posterior L thigh medially, also with areas of necrosis and fluctuance. Pulses: DP, PT palpable - Assessment and Plan (1) Sepsis Current Visit: Yes Status: Suspected Assessment and Plan: presented with L buttock abscess in the setting of WBC 24 and lactate 3.6. HR 95 initially as well 2/4 SIRS criteria complicated by poorly controlled DM WBC and lactate improving D2 vanc/zosyn, continue For I&D later today PRN fluid boluses for hypotension (2) Gluteal abscess Current Visit: Yes Status: Acute Assessment and Plan: as above (3) Hyperglycemia due to type 2 diabetes mellitus Current Visit: Yes Status: Acute Assessment and Plan: poorly controlled, last A1c 02/2018 was 10 on lantus 50U BID and metformin hold off on metformin decrease dose of levemir as he had 1 episode of asymptomatic hypoglycemia NPO till I&D (4) Acute on chronic kidney failure Current Visit: Yes Status: Resolved Assessment and Plan: ATN vs. pre-renal given 2L fluid boluses in the ED followed by maintenance fluid overnight improved, Cr at baseline continue maintenance IVF till surgery avoid nephrotoxins, renally adjusted abx (5) PAD (peripheral artery disease) Current Visit: Yes Status: Chronic Assessment and Plan: KEAGAN 0.54 on R, 0.76 on L in 08/2016 unsure why patient is not on ASA at home will benefit from ASA as outpatient (6) Tobacco abuse Current Visit: Yes Status: Chronic Assessment and Plan: counselling given NRT (7) Hypertension Current Visit: Yes Status: Chronic Assessment and Plan: Hold off on meds in view of borderline blood pressure and AoCKD (8) DVT prophylaxis Current Visit: Yes Status: Acute Assessment and Plan: SQ heparin - Time Spent with Patient Total time spent is greater than 50% in coordination of care (as documented) at patient's floor/unit and/or counseling patient: Plan of Care Discussed with: patient Internal Medicine: Result - Labs CBC & Chem 7: 03/10/18 03:46 03/10/18 03:46 Labs: Short CBC 03/09/18 03/10/18 Range/Units 12:27 03:46 WBC 24.0 H 22.3 H (4.3-11.1) K/mcL Hgb 12.1 L 10.6 L D (12.9-16.9) g/dL Hct 37.1 L 31.6 L (37.5-50.1) % Plt Count 388 333 (140-400) K/mcL Neutrophils # 19.4 H 16.8 H (1.6-8.9) K/mcL BMP 03/09/18 03/10/18 12:27 03:46 Sodium 131 L 137 Potassium 4.0 3.2 L Chloride 91 L 101 Carbon Dioxide 25 28 BUN 51 H 33 H Creatinine 1.96 H 1.39 H Glucose 411 H 125 H Calcium 9.8 9.0 Urine 03/09/18 Range/Units 15:56 Urine Color Yellow (Yellow) Urine Clarity Clear (Clear) Urine pH 6.0 (5.0-8.0) pH Units Ur Specific [place] 1.022 (1.010-1.025) Urine Protein Negative (Neg-Trace) mg/dL Urine Glucose (UA) >=1000 H (Normal) mg/dL - Impressions Impressions Abdomen/Pelvis CT 03/09/18 13:31 IMPRESSION: 1. Findings most compatible with an abscess within the left gluteal soft tissues measuring up to 6 cm in greatest dimension, as described in body of report. 2. Findings most compatible with subacute fractures of the posterior right 7th, 8th and 9th ribs. These are incompletely imaged on the current examination. If there is clinical concern for acute injury to the thorax, dedicated noncontrast CT of the thorax is recommended. 3. Possible cellulitis overlying the left greater trochanter, correlate with clinical exam. 4. Non-organized fluid collection within the soft tissues of the posterior left thigh measuring up to 4.8 cm, as described above. D/ / 03/09/2018 15:11:50 James Ford / isak Interpreting Provider: James Ford Consult Discharge Plan - Plan Referrals: NONE,PCP [Primary Care Provider] - (1) Sepsis Qualifiers: Sepsis type: sepsis due to unspecified organism Qualified Code(s): A41.9 - Sepsis, unspecified organism (3) Hyperglycemia due to type 2 diabetes mellitus Qualifiers: Diabetes mellitus terminal system operator insulin use: with terminal system operator use Qualified Code(s): E11.65 - Type 2 diabetes mellitus with hyperglycemia; Z79.4 - intermediate project manager (current) use of insulin (4) Acute on chronic kidney failure Qualifiers: Acute renal failure type: unspecified Chronic kidney disease stage: stage 3 (moderate) Qualified Code(s): N17.9 - Acute kidney failure, unspecified; N18.3 - Chronic kidney disease, stage 3 (moderate) (7) Hypertension Qualifiers: Hypertension type: essential hypertension Qualified Code(s): I10 - Essential (primary) hypertension
[2018-03-10] MEDS ORDERED: Lidocaine -MPF 1% 5 ML AMPUL INFILT ONE (10:15)
--- NOTE | 2018-03-10 10:41 | Procedure Note ---
Date of procedure: 03/10/18 Pre-op diagnosis: #1 left thigh abscess #2 left gluteal abscess Post-op diagnosis: same Procedure: After informed consent the patient is positioned in the right lateral decubitus position. Timeout was taken and the patient is identified. Both abscesses are prepped and draped in sterile fashion utilizing Betadine solution and standard draping techniques. 5 mL of 1% lidocaine with epinephrine was injected in the gluteal abscess and the thigh abscess. Next The left gluteal abscess was addressed first. Incision and drainage with a #11 blade was carried out using a cross shaped incision into the abscess cavity. Hemostat was used to breakup any loculations. The pus was drained an abscess cavity was packed with one-inch iodoform tape. The left thigh abscess was then addressed. Incision and drainage with #11 blade is carried out using a cross shaped incision into the abscess cavity. Hemostat was used to breakup any loculations. All pus was drained. The left thigh abscess was then packed with one-inch iodoform tape. The patient tolerated the procedure very well. Dr. Tanner and Dr. Klein were present for the entire procedure Anesthesia: local Surgeon: Dann Tanner Was there an roofer assistant present: Yes Security Police Officer: Carlos Klein Estimated blood loss (cc): 5 Specimen: Aerobic and anaerobic cultures Pathology: none sent Condition: stable Disposition: floor
[2018-03-10] MEDS: Insulin LISPRO 300 UNITS/3 ML VIAL SQ SCH ×4 (11:15→21:50)
--- NOTE | 2018-03-10 11:53 | General Surgery Progress Note ---
<Carlos Klein S - Last Filed: 03/10/18 11:51> Date of Encounter: 03/10/18 Time of Encounter: 08:00 - Assessment and Plan (1) Gluteal abscess Current Visit: Yes Status: Acute CT evidence of left gluteal soft tissue measuring 6 cm in greatest dimension, cellulitis overlying the greater trochanter, and fluid collection within the soft tissue of the posterior left thigh Temp of 100.7 this AM WBC 24 > 22.3 today Patient on vancomycin and zosyn Blood cultures x2 Patient on IVF hydration at 100 ml/hr acetaminophen, norco and oxycodone for pain Prilosec for GI prophylaxis Will do bedside incision and drainage on gluteal and thigh abscesses today Restart diabetic diet after procedure (2) Cellulitis Current Visit: Yes Status: Acute Cellulitis near left trochanter on CT Physical exam shows large erythematous region overlying the same region See above for plan Qualifiers: Site of cellulitis: extremity Site of cellulitis of extremity: lower extremity Laterality: left Qualified Code(s): L03.116 - Cellulitis of left lower limb (3) Hyperglycemia due to type 2 diabetes mellitus Current Visit: Yes Status: Acute Management per primary team On med dose sliding scale insulin 30 units levemir BID Qualifiers: Diabetes mellitus exterminator termite insulin use: with exterminator termite use Qualified Code(s): E11.65 - Type 2 diabetes mellitus with hyperglycemia; Z79.4 - longterm (current) use of insulin (4) CKD (chronic kidney disease) Current Visit: Yes Status: Acute Management per primary team Cr 1.96 Continue IVF hydration Qualifiers: Chronic kidney disease stage: unspecified stage Qualified Code(s): N18.9 - Chronic kidney disease, unspecified Subjective Patient reports: no new complaints, feels better, still having pain, pain is less, flatus, afebrile Objective Vital Signs - Last 8 Hours Temp Pulse BP Pulse Ox 03/10/18 11:02 98.4 F 79 125/58 03/10/18 06:48 100.7 F H 89 125/65 93 Intake and Output 03/09/18 03/10/18 03/10/18 23:59 07:59 15:59 Intake Total 1300 / 1300 100 / 100 Balance 1300 / 1300 100 / 100 Intake: IV Fluids 1000 / 1000 100 / 100 0.9 % Sodium Chloride 1,000 ML 1000 / 1000 @ 3750 mls/hr IVC .Q16M [facility] Rx# :[id number] Zosyn 3.375 GM In 0.9 % Sodium 100 / 100 Chloride (Mini-Bag +) 100 ML @ 25 mls/hr IVPB Q8H [facility] Rx#: [id number] Oral 300 / 300 0 / 0 Other: Weight 76.2 kg 76.2 kg Blood Glucose* 338 71 Patient Weight 03/10/18 23:59 Weight 76.2 kg - General physical appearance no distress - Respiratory normal expansion, normal respiratory effort - Cardiovascular Cardiovascular exam: Present: RRR - Abdomen Abdomen: Present: bowel sounds present, soft, non tender - Integumentary other (abscess in left gluteal region draining purulent material, abscess in left upper inner thigh induration and fluctuance but not actively draining) - Psychiatric oriented to time, oriented to person, oriented to place - Labs 03/10/18 03:46 03/10/18 03:46 Diabetes panel 03/09/18 03/10/18 Range/Units 12:27 03:46 Sodium 131 L 137 (136-145) mEq/L Potassium 4.0 3.2 L (3.5-5.1) mEq/L Chloride 91 L 101 (98-107) mEq/L Carbon Dioxide 25 28 (23-29) mEq/L BUN 51 H 33 H (8-23) mg/dL Creatinine 1.96 H 1.39 H (0.70-1.30) mg/dL Glucose 411 H 125 H (70-105) mg/dL Calcium 9.8 9.0 (8.6-10.3) mg/dL Calcium panel 03/09/18 03/10/18 Range/Units 12:27 03:46 Calcium 9.8 9.0 (8.6-10.3) mg/dL Pituitary panel 03/09/18 03/10/18 Range/Units 12:27 03:46 Sodium 131 L 137 (136-145) mEq/L Potassium 4.0 3.2 L (3.5-5.1) mEq/L Chloride 91 L 101 (98-107) mEq/L Carbon Dioxide 25 28 (23-29) mEq/L BUN 51 H 33 H (8-23) mg/dL Creatinine 1.96 H 1.39 H (0.70-1.30) mg/dL Glucose 411 H 125 H (70-105) mg/dL Calcium 9.8 9.0 (8.6-10.3) mg/dL Adrenal panel 03/09/18 03/10/18 Range/Units 12:27 03:46 Sodium 131 L 137 (136-145) mEq/L Potassium 4.0 3.2 L (3.5-5.1) mEq/L Chloride 91 L 101 (98-107) mEq/L Carbon Dioxide 25 28 (23-29) mEq/L BUN 51 H 33 H (8-23) mg/dL Creatinine 1.96 H 1.39 H (0.70-1.30) mg/dL Glucose 411 H 125 H (70-105) mg/dL Calcium 9.8 9.0 (8.6-10.3) mg/dL - Imaging CT scan - abdomen: report reviewed, image reviewed CT scan - pelvis: report reviewed, image reviewed Consult Discharge Plan - Plan Referrals: NONE,PCP [Primary Care Provider] - <Dann Tanner - Last Filed: 03/11/18 07:15> Date of Encounter: 03/10/18 Objective Vital Signs - Last 8 Hours Temp Pulse Resp BP Pulse Ox 03/11/18 07:08 98.1 F 71 15 123/58 95 03/11/18 04:11 98.3 F 72 16 114/60 96 Intake and Output 03/10/18 03/10/18 03/11/18 15:59 23:59 06:59 Intake Total 350 / 350 120 / 120 100 / 100 Output Total 700 / 700 725 / 0 Balance 350 / 350 -580 / -580 -625 / 100 Intake: IV Fluids 350 / 350 100 / 100 Zosyn 3.375 GM In 0.9 % Sodium 100 / 100 100 / 100 Chloride (Mini-Bag +) 100 ML @ 25 mls/hr IVPB Q8H [facility] Rx#: [id number] Vancocin 1,000 MG In 0.9 % 250 / 250 Sodium Chloride 250 ML @ 167 mls/hr IVPB Q24H [facility] Rx#: [id number] Oral 120 / 120 0 / 0 Output: Urine 700 / 700 725 / 0 Other: Meal Dinner Percent of Meal Consumed 45% Weight 76.2 kg Blood Glucose* 106 283 108 Patient Weight 03/11/18 22:59 Weight 76.2 kg - Labs 11/04/18 05:31 03/11/18 05:31 Diabetes panel 03/11/18 Range/Units 05:31 Sodium 138 (136-145) mEq/L Potassium 3.7 (3.5-5.1) mEq/L Chloride 102 (98-107) mEq/L Carbon Dioxide 29 (23-29) mEq/L BUN 18 (8-23) mg/dL Creatinine 1.35 H (0.70-1.30) mg/dL Glucose 115 H (70-105) mg/dL Calcium 9.2 (8.6-10.3) mg/dL Calcium panel 03/11/18 Range/Units 05:31 Calcium 9.2 (8.6-10.3) mg/dL Pituitary panel 03/11/18 Range/Units 05:31 Sodium 138 (136-145) mEq/L Potassium 3.7 (3.5-5.1) mEq/L Chloride 102 (98-107) mEq/L Carbon Dioxide 29 (23-29) mEq/L BUN 18 (8-23) mg/dL Creatinine 1.35 H (0.70-1.30) mg/dL Glucose 115 H (70-105) mg/dL Calcium 9.2 (8.6-10.3) mg/dL Adrenal panel 03/11/18 Range/Units 05:31 Sodium 138 (136-145) mEq/L Potassium 3.7 (3.5-5.1) mEq/L Chloride 102 (98-107) mEq/L Carbon Dioxide 29 (23-29) mEq/L BUN 18 (8-23) mg/dL Creatinine 1.35 H (0.70-1.30) mg/dL Glucose 115 H (70-105) mg/dL Calcium 9.2 (8.6-10.3) mg/dL - Attending Attestation I examined this patient and my medical decision-making was reviewed with the Resident Physician. I agree with the documented findings, disposition and treatment plan as described except to the extent set forth below. The patient is seen and evaluated with resident. He has 2 abscesses. These are not decubitus ulcers. Both will require incision and drainage. Procedure will be performed later today. Please see procedure note Dann Tanner MD FACS
[2018-03-10] MEDS: 0.9 % Sodium Chloride 500 ML IVC SCH (13:46)
[2018-03-10] MEDS ORDERED: Vancomycin 1 EACH in 0.9 % Sodium Chloride 250 ML IVPB SCH (14:00)
[2018-03-11] MEDS: Piperacillin/Tazobactam 3.375 GM in 0.9 % Sodium Chloride Mini Bag 100 ML IVPB SCH ×3 (04:16→20:47)
[2018-03-11 06:08] LABS: Basophils # 0.1 K/mcL (0.0-0.2); Basophils % 0.7 %; Eosinophils # 0.7 K/mcL (0.0-0.6); Hemoglobin 10.8 g/dL (12.9-16.9); Immature Granulocytes % 0.9 % (0-4); Lymphocytes # 2.5 K/mcL (0.6-4.6); Lymphocytes % 15.5 %; Mean Corpuscular HGB Conc 31.8 g/dL (31.6-35.5); Mean Corpuscular Hemoglobin 27.3 pg (28.0-33.3); Mean Corpuscular Volume 85.9 fL (83.0-100.0); Mean Platelet Volume 9.9 fL (9.4-12.4); Monocytes # 1.3 K/mcL (0.0-1.3); Monocytes % 7.8 %; Neutrophils # 11.4 K/mcL (1.6-8.9); Platelet Count 351 K/mcL (140-400); Red Blood Count 3.96 M/mcL (4.19-5.50); Red Cell Distribution Width 12.9 % (11.5-14.5); Segmented Neutrophils % 71.1 %
[2018-03-11] MEDS: *HR* Heparin 5,000 UNIT/ML VIAL SQ SCH ×2 (06:24→16:39)
[2018-03-11 06:27] LABS: BUN/Creatinine Ratio 13 (6-26); Blood Urea Nitrogen 18 mg/dL (8-23); Calcium 9.2 mg/dL (8.6-10.3); Carbon Dioxide 29 mEq/L (23-29); Chloride 102 mEq/L (98-107); Glucose 115 mg/dL (70-105); Magnesium 1.7 mg/dL (1.6-2.6); Osmolality,Calculated 289 (280-300); Potassium 3.7 mEq/L (3.5-5.1); Sodium 138 mEq/L (136-145); eGFR For Non-African Americans 54 (> 60)
[2018-03-11] MEDS: Insulin LISPRO 300 UNITS/3 ML VIAL SQ SCH ×4 (08:21→20:47)
[2018-03-11] MEDS: Gabapentin 300 MG CAPSULE PO SCH ×3 (08:29→20:47)
[2018-03-11] MEDS: Insulin DETEMIR 100 UNIT/ML X5UNITS SQ SCH ×2 (08:29→20:48)
[2018-03-11] MEDS: Nicotine 21 MG PATCH.TD24 TD SCH (08:30)
--- NOTE | 2018-03-11 09:38 | Internal Med Progress Note ---
Hospitalist Progress Note - Encounter Date of Encounter: 03/11/18 Time of Encounter: 08:00 - Subjective Interval History: Underwent I&D of both L buttock and thigh abscesses yesterday. No fever/chills or nausea/vomiting. - Exam Vitals: Temp Pulse Resp BP Pulse Ox 98.1 F 71 15 123/58 95 03/11/18 07:08 03/11/18 07:08 03/11/18 07:08 03/11/18 07:08 03/11/18 07:08 Exam: General: Alert and oriented, not in acute distress. Cardiovascular:Normal S1 & S2, No JVD. Pulse regular. Lungs: clear to auscultation, no wheezes/rales Abdomen:Soft, non-tender, no rigidity. Skin: L buttock and thigh dressing dry and intact Pulses: DP, PT palpable - Assessment and Plan (1) Sepsis Current Visit: Yes Status: Resolved Assessment and Plan: presented with L buttock/thigh abscesses in the setting of WBC 24 and lactate 3.6. HR 95 initially as well 2/4 SIRS criteria complicated by poorly controlled DM underwent I&D yesterday uneventfully, POD1 WBC and lactate improving D3 vanc/zosyn, continue till intraop culture is finalized (2) Gluteal abscess Current Visit: Yes Status: Acute Assessment and Plan: as above (3) Hyperglycemia due to type 2 diabetes mellitus Current Visit: Yes Status: Acute Assessment and Plan: poorly controlled, last A1c 02/2018 was 10 on lantus 50U BID and metformin hold off on metformin continue levemir 30U BID with moderate dose sliding scale ADA diet (4) Acute on chronic kidney failure Current Visit: Yes Status: Resolved Assessment and Plan: ATN vs. pre-renal Improved with IVF, Cr at baseline. D/c IVF avoid nephrotoxins, renally adjusted abx (5) PAD (peripheral artery disease) Current Visit: Yes Status: Chronic Assessment and Plan: KEAGAN 0.54 on R, 0.76 on L in 08/2016 unsure why patient is not on ASA at home will benefit from ASA as outpatient (6) Tobacco abuse Current Visit: Yes Status: Chronic Assessment and Plan: counselling given NRT (7) Hypertension Current Visit: Yes Status: Chronic Assessment and Plan: BP just becoming to be normalized monitor off meds today -> may be able to restart from tomorrow (8) DVT prophylaxis Current Visit: Yes Status: Acute Assessment and Plan: SQ heparin - Time Spent with Patient Total time spent is greater than 50% in coordination of care (as documented) at patient's floor/unit and/or counseling patient: Plan of Care Discussed with: patient Internal Medicine: Result - Labs CBC & Chem 7: 03/11/18 05:31 03/11/18 05:31 Labs: Short CBC 03/11/18 Range/Units 05:31 WBC 16.1 H (4.3-11.1) K/mcL Hgb 10.8 L (12.9-16.9) g/dL Hct 34.0 L (37.5-50.1) % Plt Count 351 (140-400) K/mcL Neutrophils # 11.4 H (1.6-8.9) K/mcL BMP 03/11/18 05:31 Sodium 138 Potassium 3.7 Chloride 102 Carbon Dioxide 29 BUN 18 Creatinine 1.35 H Glucose 115 H Calcium 9.2 Consult Discharge Plan - Plan Referrals: NONE,PCP [Primary Care Provider] - (1) Sepsis Qualifiers: Sepsis type: sepsis due to unspecified organism Qualified Code(s): A41.9 - Sepsis, unspecified organism (3) Hyperglycemia due to type 2 diabetes mellitus Qualifiers: Diabetes mellitus nursing home insulin use: with [employer] customer service use Qualified Code(s): E11.65 - Type 2 diabetes mellitus with hyperglycemia; Z79.4 - penitentiary (current) use of insulin (4) Acute on chronic kidney failure Qualifiers: Acute renal failure type: unspecified Chronic kidney disease stage: stage 3 (moderate) Qualified Code(s): N17.9 - Acute kidney failure, unspecified; N18.3 - Chronic kidney disease, stage 3 (moderate) (7) Hypertension Qualifiers: Hypertension type: essential hypertension Qualified Code(s): I10 - Essential (primary) hypertension
[2018-03-11] MEDS ORDERED: Aminoglycoside Consult 1 EACH MC ONE (10:10)
--- NOTE | 2018-03-11 15:24 | General Surgery Progress Note ---
<ErnieCarlos S - Last Filed: 03/11/18 15:22> Date of Encounter: 03/11/18 Time of Encounter: 08:45 - Assessment and Plan (1) Gluteal abscess Current Visit: Yes Status: Acute CT evidence of left gluteal soft tissue measuring 6 cm in greatest dimension, cellulitis overlying the greater trochanter, and fluid collection within the soft tissue of the posterior left thigh Afebrile overnight WBC 22.3 > 16.1 today Patient on vancomycin and zosyn Blood cultures x2 Patient on IVF hydration at 100 ml/hr acetaminophen, norco and oxycodone for pain Prilosec for GI prophylaxis S/p bedside incision and drainage (03/10) of left gluteal and and left thigh abscesses Wounds packed with iodoform and dressings applied Please change iodoform packing daily until no more pus, drainage present Follow-up wound care as outpatient Surgery will sign off now, thank you for the consult (2) Cellulitis Current Visit: Yes Status: Acute Cellulitis near left trochanter on CT Physical exam shows large erythematous region overlying the same region - s/p incision and drainage (03/10) See above for plan Qualifiers: Site of cellulitis: extremity Site of cellulitis of extremity: lower extremity Laterality: left Qualified Code(s): L03.116 - Cellulitis of left lower limb (3) Hyperglycemia due to type 2 diabetes mellitus Current Visit: Yes Status: Acute Management per primary team On med dose sliding scale insulin 30 units levemir BID Qualifiers: Diabetes mellitus snf insulin use: with intermodal dispatcher use Qualified Code(s): E11.65 - Type 2 diabetes mellitus with hyperglycemia; Z79.4 - local company intermodal truck driver (current) use of insulin (4) CKD (chronic kidney disease) Current Visit: Yes Status: Acute Management per primary team Cr 1.96 > 1.35 today Continue IVF hydration Qualifiers: Chronic kidney disease stage: unspecified stage Qualified Code(s): N18.9 - Chronic kidney disease, unspecified Subjective Patient reports: no new complaints, feels better, pain is less, tolerating a regular diet Narrative: Patient doing well this morning, sitting in chair. He denies fevers/chill, pain at incision site, CP, SOB, abdominal pain. Objective Vital Signs - Last 8 Hours Temp Pulse Resp BP Pulse Ox 03/11/18 09:00 98 F 79 16 149/67 95 Intake and Output 03/11/18 03/11/18 03/11/18 00:59 07:59 15:59 Intake Total 660 / 660 Output Total Balance 660 / 660 Intake: IV Fluids 300 / 300 Dextrose 5% 1,000 ML @ 100 mls/ 200 / 200 hr IVC .Q10H PRN Rx#:[id number] Zosyn 3.375 GM In 0.9 % Sodium 100 / 100 Chloride (Mini-Bag +) 100 ML @ 25 mls/hr IVPB Q8H MARIA LUZ Rx#: [id number] Oral 360 / 360 Output: Urine Other: Meal Breakfast Percent of Meal Consumed 100% Weight Blood Glucose* 232 Patient Weight 03/11/18 22:59 Weight 76.2 kg - General physical appearance well developed - Respiratory normal expansion, normal respiratory effort - Cardiovascular Cardiovascular exam: Present: RRR - Abdomen Abdomen: Present: bowel sounds present, soft, non tender - Incision Incision: Present: draining (left gluteal abscess and left upper inner thigh abscess, both abscesses packed with iodoform, granulation tissue), serosanguinous, open - Psychiatric oriented to time, oriented to person, oriented to place - Labs 03/11/18 05:31 03/11/18 05:31 Diabetes panel 03/11/18 Range/Units 05:31 Sodium 138 (136-145) mEq/L Potassium 3.7 (3.5-5.1) mEq/L Chloride 102 (98-107) mEq/L Carbon Dioxide 29 (23-29) mEq/L BUN 18 (8-23) mg/dL Creatinine 1.35 H (0.70-1.30) mg/dL Glucose 115 H (70-105) mg/dL Calcium 9.2 (8.6-10.3) mg/dL Calcium panel 03/11/18 Range/Units 05:31 Calcium 9.2 (8.6-10.3) mg/dL Pituitary panel 03/11/18 Range/Units 05:31 Sodium 138 (136-145) mEq/L Potassium 3.7 (3.5-5.1) mEq/L Chloride 102 (98-107) mEq/L Carbon Dioxide 29 (23-29) mEq/L BUN 18 (8-23) mg/dL Creatinine 1.35 H (0.70-1.30) mg/dL Glucose 115 H (70-105) mg/dL Calcium 9.2 (8.6-10.3) mg/dL Adrenal panel 03/11/18 Range/Units 05:31 Sodium 138 (136-145) mEq/L Potassium 3.7 (3.5-5.1) mEq/L Chloride 102 (98-107) mEq/L Carbon Dioxide 29 (23-29) mEq/L BUN 18 (8-23) mg/dL Creatinine 1.35 H (0.70-1.30) mg/dL Glucose 115 H (70-105) mg/dL Calcium 9.2 (8.6-10.3) mg/dL Consult Discharge Plan - Plan Referrals: NONE,PCP [Primary Care Provider] - <Dann Tanner - Last Filed: 03/11/18 19:26> Date of Encounter: 03/11/18 Objective Vital Signs - Last 8 Hours Temp Pulse Resp BP Pulse Ox 03/11/18 13:00 98.2 F 77 15 135/72 94 Intake and Output 03/11/18 03/11/18 03/11/18 07:59 15:59 23:59 Intake Total 660 / 660 490 / 490 Output Total 0 / 0 700 / 700 Balance 660 / 660 -210 / -210 Intake: IV Fluids 300 / 300 250 / 250 Dextrose 5% 1,000 ML @ 100 mls/ 200 / 200 hr IVC .Q10H PRN Rx#:[id number] Zosyn 3.375 GM In 0.9 % Sodium 100 / 100 Chloride (Mini-Bag +) 100 ML @ 25 mls/hr IVPB Q8H MARIA LUZ Rx#: [id number] Vancocin 1,000 MG In 0.9 % 250 / 250 Sodium Chloride 250 ML @ 167 mls/hr IVPB Q24H MARIA LUZ Rx#: [id number] Oral 360 / 360 240 / 240 Output: Urine 0 / 0 700 / 700 Other: Meal Breakfast Dinner Percent of Meal Consumed 100% 50% Blood Glucose* 223 Patient Weight 03/11/18 22:59 Weight 76.2 kg - Labs 03/11/18 05:31 03/11/18 05:31 Diabetes panel 03/11/18 Range/Units 05:31 Sodium 138 (136-145) mEq/L Potassium 3.7 (3.5-5.1) mEq/L Chloride 102 (98-107) mEq/L Carbon Dioxide 29 (23-29) mEq/L BUN 18 (8-23) mg/dL Creatinine 1.35 H (0.70-1.30) mg/dL Glucose 115 H (70-105) mg/dL Calcium 9.2 (8.6-10.3) mg/dL Calcium panel 03/11/18 Range/Units 05:31 Calcium 9.2 (8.6-10.3) mg/dL Pituitary panel 03/11/18 Range/Units 05:31 Sodium 138 (136-145) mEq/L Potassium 3.7 (3.5-5.1) mEq/L Chloride 102 (98-107) mEq/L Carbon Dioxide 29 (23-29) mEq/L BUN 18 (8-23) mg/dL Creatinine 1.35 H (0.70-1.30) mg/dL Glucose 115 H (70-105) mg/dL Calcium 9.2 (8.6-10.3) mg/dL Adrenal panel 03/11/18 Range/Units 05:31 Sodium 138 (136-145) mEq/L Potassium 3.7 (3.5-5.1) mEq/L Chloride 102 (98-107) mEq/L Carbon Dioxide 29 (23-29) mEq/L BUN 18 (8-23) mg/dL Creatinine 1.35 H (0.70-1.30) mg/dL Glucose 115 H (70-105) mg/dL Calcium 9.2 (8.6-10.3) mg/dL - Attending Attestation I examined this patient and my medical decision-making was reviewed with the Resident Physician. I agree with the documented findings, disposition and treatment plan as described except to the extent set forth below. The patient had incision and drainage of abscesses yesterday. His white blood cell count is coming down. Dressing changes are ordered. Surgery will sign off. We can always follow him in wound clinic Dann Tanner MD FACS
[2018-03-12 05:12] LABS: Basophils # 0.2 K/mcL (0.0-0.2); Basophils % 1.1 %; Eosinophils # 0.8 K/mcL (0.0-0.6); Eosinophils % 5.3 %; Hematocrit 34.6 % (37.5-50.1); Hemoglobin 11.1 g/dL (12.9-16.9); Immature Granulocytes % 0.8 % (0-4); Lymphocytes # 3.3 K/mcL (0.6-4.6); Lymphocytes % 23.8 %; Mean Corpuscular HGB Conc 32.1 g/dL (31.6-35.5); Mean Corpuscular Hemoglobin 27.7 pg (28.0-33.3); Mean Corpuscular Volume 86.3 fL (83.0-100.0); Mean Platelet Volume 9.9 fL (9.4-12.4); Monocytes # 0.9 K/mcL (0.0-1.3); Monocytes % 6.5 %; Neutrophils # 8.8 K/mcL (1.6-8.9); Platelet Count 348 K/mcL (140-400); Red Blood Count 4.01 M/mcL (4.19-5.50); Red Cell Distribution Width 12.8 % (11.5-14.5); Segmented Neutrophils % 62.5 %
[2018-03-12 05:25] LABS: BUN/Creatinine Ratio 13 (6-26); Blood Urea Nitrogen 17 mg/dL (8-23); Calcium 9.1 mg/dL (8.6-10.3); Carbon Dioxide 28 mEq/L (23-29); Chloride 104 mEq/L (98-107); Glucose 84 mg/dL (70-105); Osmolality,Calculated 291 (280-300); Potassium 3.7 mEq/L (3.5-5.1); Sodium 140 mEq/L (136-145); eGFR For Non-African Americans 55 (> 60)
[2018-03-12] MEDS: *HR* Heparin 5,000 UNIT/ML VIAL SQ SCH ×2 (06:07→17:00)
[2018-03-12] MEDS: Piperacillin/Tazobactam 3.375 GM in 0.9 % Sodium Chloride Mini Bag 100 ML IVPB SCH (06:55)
[2018-03-12] MEDS: Insulin LISPRO 300 UNITS/3 ML VIAL SQ SCH ×4 (07:30→21:35)
[2018-03-12] MEDS: Nicotine 21 MG PATCH.TD24 TD SCH (08:40)
[2018-03-12] MEDS: Gabapentin 300 MG CAPSULE PO SCH ×3 (08:40→21:35)
[2018-03-12] MEDS: Insulin DETEMIR 100 UNIT/ML X5UNITS SQ SCH ×2 (08:41→21:30)
--- NOTE | 2018-03-12 15:55 | Internal Med Progress Note ---
Hospitalist Progress Note - Encounter Date of Encounter: 03/12/18 Time of Encounter: 15:55 - Subjective Interval History: Pt is an overall poor historian. Lives in a trailer with who is disabled and his patient care representative. Pt denies fever chills, N/V or diarrhea. He denies CP or SOB. He states he had been having symptoms for weeks prior to coming to ED. - Exam Vitals: Temp Pulse Resp BP Pulse Ox 97.6 F 76 16 132/78 95 03/12/18 11:00 03/12/18 11:00 03/12/18 11:00 03/12/18 11:00 03/12/18 11:00 Exam: General: Alert and oriented, not in acute distress. Cardiovascular:Normal S1 & S2, No JVD. Pulse regular. Lungs: clear to auscultation, no wheezes/rales Abdomen:Soft, non-tender, no rigidity. Extremity: No LE edema Skin: L buttock and thigh dressing dry and intact Pulses: DP, PT palpable - Assessment and Plan (1) Sepsis Current Visit: Yes Status: Resolved Assessment and Plan: Sepsis due to gluteal abscess. Presented with L buttock/thigh abscesses in the setting of WBC 24 and lactate 3.6. HR 95 initially as well 2/4 SIRS criteria. Complicated by poorly controlled DM Underwent I&D yesterday uneventfully, POD #2 WBC trending down and lactate wnl DC vanc/zosyn day 4, culture + MRSA Will switch to Clindamycin at discharge. Awaiting PT/OT to eval for placement/disposition plans (2) Gluteal abscess Current Visit: Yes Status: Acute Assessment and Plan: CT evidence of left gluteal soft tissue measuring 6 cm in greatest dimension, cellulitis overlying the greater trochanter, and fluid collection within the soft tissue of the posterior left thigh s/p I and D by surgery 03/10/2018. Positive MRSA per culture sensitive to clind amycin. Was on Vanc and Zosyn and will switch to PO Clindamycin at [place]. WBC trending down, was 24 and down to 14.1. If still here in am, will check CBC. (3) Hyperglycemia due to type 2 diabetes mellitus Current Visit: Yes Status: Acute Assessment and Plan: poorly controlled initially but better now following adjustments to diabetic insulin regimen. Last A1c 02/2018 was 10 On lantus 50U BID and metformin at home but metformin on hold continue levemir 30U BID with moderate dose sliding scale ADA diet (4) Acute on chronic kidney failure Current Visit: Yes Status: Resolved Assessment and Plan: ATN vs. pre-renal Improved with IVF, Cr at baseline. D/C IVF avoid nephrotoxins, renally adjusted abx (5) PAD (peripheral artery disease) Current Visit: Yes Status: Chronic Assessment and Plan: KEAGAN 0.54 on R, 0.76 on L in 08/2016 Pt states he is supposed to be taking a baby ASA QD but he has not taken one in a while Will resume ASA 81 mg PO daily. Will add plavix. Will check lipid panel in am. Follow up out pt with PCP. (6) Hypertension Current Visit: Yes Status: Chronic Assessment and Plan: BP just becoming to be normalized monitor off meds. Will resume BP meds. Norvasc, HCTZ, and Cardizem. Will resume Norvasc today and monitor BP. (7) Tobacco abuse Current Visit: Yes Status: Chronic Assessment and Plan: counselling given Cessation strongly advised. DVT Prophylaxis: Heparin - Summary of Assessment and Plan Summary of Assessment and Plan: History of present illness: Dr. Guevara Mr. Dixon is a 62 year old male with PMHx of DM, CKD, tobaccoabuse, presented to the ED with left buttock ulcer. Noticed it about 2-3 weeks ago but did not seek any medical advice as he didn't think it was serious enough. Patient however became concerned when it started draining purulent discharge about a week ago, which is foul smelling. States that it is also painful to sit on his buttock. No fever/chills or N/V. Denies any chest pain, SOB, cough, sputum prod uction, change in bowel habits, or dysuria. His glucose have been poorly controlled recently as well and there is a question about his compliance to meds as well. In the ED, he was afebrile with heart rate of 95. BP stable. Initial workup showed leukocytosis of 24, lactic acid 3.6, ESR/CRP of 80/151 respectively. Cr 1.96 (baseline ~ 1.5). Glucose 411. Urinalysis was unremarkable. CT abdomen and pelvis showed left gluteal abscess as well as non- organized fluid collection in posterior thigh, in addition to cellulitis over L greater trochanteric region. Patient was given 2 L of fluid boluses, IV vancomycin/Zosyn, and admitted for further management. - Time Spent with Patient Total time spent is greater than 50% in coordination of care (as documented) at patient's floor/unit and/or counseling patient: Internal Medicine: Result - Labs CBC & Chem 7: 03/12/18 04:38 03/12/18 04:38 Labs: Short CBC 03/12/18 Range/Units 04:38 WBC 14.1 H (4.3-11.1) K/mcL Hgb 11.1 L (12.9-16.9) g/dL Hct 34.6 L (37.5-50.1) % Plt Count 348 (140-400) K/mcL Neutrophils # 8.8 (1.6-8.9) K/mcL BMP 03/12/18 04:38 Sodium 140 Potassium 3.7 Chloride 104 Carbon Dioxide 28 BUN 17 Creatinine 1.33 H Glucose 84 Calcium 9.1 Consult Discharge Plan - Plan Referrals: NONE,PCP [Primary Care Provider] - (1) Sepsis Qualifiers: Sepsis type: sepsis due to unspecified organism Qualified Code(s): A41.9 - Sepsis, unspecified organism (3) Hyperglycemia due to type 2 diabetes mellitus Qualifiers: Diabetes mellitus skilled nursing insulin use: with skilled nursing use Qualified Code(s): E11.65 - Type 2 diabetes mellitus with hyperglycemia; Z79.4 - half-way (current) use of insulin (4) Acute on chronic kidney failure Qualifiers: Acute renal failure type: unspecified Chronic kidney disease stage: stage 3 (moderate) Qualified Code(s): N17.9 - Acute kidney failure, unspecified; N18.3 - Chronic kidney disease, stage 3 (moderate) (6) Hypertension Qualifiers: Hypertension type: essential hypertension Qualified Code(s): I10 - Essential (primary) hypertension
[2018-03-13 05:09] LABS: Chol/HDL Ratio 6.6 (0-4.9)
[2018-03-13] MEDS: *HR* Heparin 5,000 UNIT/ML VIAL SQ SCH ×2 (05:27→17:22)
[2018-03-13] MEDS ORDERED: amLODIPine 5 MG TABLET PO ONE (05:33)
[2018-03-13] MEDS: Insulin DETEMIR 100 UNIT/ML X5UNITS SQ SCH (08:31)
[2018-03-13] MEDS: Insulin LISPRO 300 UNITS/3 ML VIAL SQ SCH ×4 (08:31→21:50)
[2018-03-13] MEDS: Nicotine 21 MG PATCH.TD24 TD SCH (08:32)
[2018-03-13] MEDS: Aspirin Enteric Coated 81 MG Tablet PO SCH (08:32)
[2018-03-13] MEDS: Gabapentin 300 MG CAPSULE PO SCH ×4 (08:32→21:50)
[2018-03-13] MEDS ORDERED: amLODIPine 5 MG TABLET PO SCH (09:00)
[2018-03-13 09:59] LABS: Basophils # 0.1 K/mcL (0.0-0.2); Basophils % 0.9 %; Eosinophils # 0.5 K/mcL (0.0-0.6); Hematocrit 41.8 % (37.5-50.1); Immature Granulocytes % 0.7 % (0-4); Lymphocytes # 2.1 K/mcL (0.6-4.6); Mean Corpuscular HGB Conc 31.6 g/dL (31.6-35.5); Mean Corpuscular Hemoglobin 27.4 pg (28.0-33.3); Mean Corpuscular Volume 86.9 fL (83.0-100.0); Mean Platelet Volume 9.9 fL (9.4-12.4); Monocytes # 0.6 K/mcL (0.0-1.3); Monocytes % 4.6 %; Neutrophils # 9.9 K/mcL (1.6-8.9); Platelet Count 440 K/mcL (140-400); Red Blood Count 4.81 M/mcL (4.19-5.50); Segmented Neutrophils % 73.8 %
[2018-03-13 10:03] LABS: Hemoglobin 13.2 g/dL (12.9-16.9)
[2018-03-13 10:19] LABS: BUN/Creatinine Ratio 12 (6-26); Blood Urea Nitrogen 18 mg/dL (8-23); Calcium 9.8 mg/dL (8.6-10.3); Carbon Dioxide 28 mEq/L (23-29); Chloride 103 mEq/L (98-107); Glucose 186 mg/dL (70-105); Osmolality,Calculated 295 (280-300); Potassium 4.4 mEq/L (3.5-5.1); Sodium 139 mEq/L (136-145); eGFR For Non-African Americans 50 (> 60)
--- NOTE | 2018-03-13 16:43 | Internal Med Progress Note ---
Hospitalist Progress Note - Encounter Date of Encounter: 03/13/18 Time of Encounter: 11:00 - Subjective Interval History: Patient with resolved sepsis secondary to gluteal abscess on to have grown MRSA He is now [facility]. - Exam Vitals: Temp Pulse Resp BP Pulse Ox 97.6 F 73 16 150/72 95 03/13/18 15:45 03/13/18 15:45 03/13/18 04:50 03/13/18 15:45 03/13/18 04:50 Exam: Gen.: Nonacute distress, alert and oriented 3 ENT: Mucosal membranes moist Respiratory: Lungs are clear to auscultation bilaterally without any wheezing rhonchi or rales Cardiovascular: Normal S1 and S2 regular rate rhythm no murmurs rubs or gallops Abdomen: Soft, nontender and nondistended with positive bowel sounds Extremities: No lower extremity edema Skin: Normal color - Assessment and Plan (1) Gluteal abscess Current Visit: Yes Status: Acute Assessment and Plan: CT evidence of left gluteal soft tissue measuring 6 cm in greatest dimension; cellulitis overlying the greater trochanter, and fluid collection within the soft tissue of the posterior left thigh s/p I and D by surgery 03/10/2018. Positive MRSA per culture sensitive to clindamycin. Was on Vanc and Zosyn and will switch to PO doxycycline at [place]. WBC trending down, was 24 and down to 13.3. (2) Sepsis Current Visit: Yes Status: Resolved Assessment and Plan: Resolved; secondary to gluteal abscess. (3) Hyperglycemia due to type 2 diabetes mellitus Current Visit: Yes Status: Acute Assessment and Plan: Last A1c 02/2018 was 10 On lantus 50U BID and metformin at home but metformin on hold continue levemir 30U BID with moderate dose sliding scale ADA diet (4) Acute on chronic kidney failure Current Visit: Yes Status: Resolved Assessment and Plan: ATN vs. pre-renal Improved with IVF, Cr at baseline. D/C IVF avoid nephrotoxins, renally adjusted abx (5) Tobacco abuse Current Visit: Yes Status: Chronic Assessment and Plan: Smoking cessation (6) PAD (peripheral artery disease) Current Visit: Yes Status: Chronic Assessment and Plan: KEAGAN 0.54 on R, 0.76 on L in 08/2016 Pt states he is supposed to be taking a baby ASA QD but he has not taken one in a while Will resume ASA 81 mg PO daily. Plavix added. Follow up out pt with PCP. (7) Hypertension Current Visit: Yes Status: Chronic Assessment and Plan: Continue Norvasc, HCTZ, and Cardizem. - Time Spent with Patient Total time spent is greater than 50% in coordination of care (as documented) at patient's floor/unit and/or counseling patient: Internal Medicine: Result - Labs CBC & Chem 7: 03/13/18 09:35 03/13/18 09:35 Labs: Short CBC 03/13/18 Range/Units 09:35 WBC 13.3 H (4.3-11.1) K/mcL Hgb 13.2 D (12.9-16.9) g/dL Hct 41.8 (37.5-50.1) % Plt Count 440 H (140-400) K/mcL Neutrophils # 9.9 H (1.6-8.9) K/mcL BMP 03/13/18 09:35 Sodium 139 Potassium 4.4 Chloride 103 Carbon Dioxide 28 BUN 18 Creatinine 1.45 H Glucose 186 H Calcium 9.8 Consult Discharge Plan - Plan Referrals: NONE,PCP [Primary Care Provider] - (2) Sepsis Qualifiers: Sepsis type: sepsis due to unspecified organism Qualified Code(s): A41.9 - Sepsis, unspecified organism (3) Hyperglycemia due to type 2 diabetes mellitus Qualifiers: Diabetes mellitus [place] insulin use: with [facility] use Qualified Code(s): E11.65 - Type 2 diabetes mellitus with hyperglycemia; Z79.4 - halfway (current) use of insulin (4) Acute on chronic kidney failure Qualifiers: Acute renal failure type: unspecified Chronic kidney disease stage: stage 3 (moderate) Qualified Code(s): N17.9 - Acute kidney failure, unspecified; N18.3 - Chronic kidney disease, stage 3 (moderate) (7) Hypertension Qualifiers: Hypertension type: essential hypertension Qualified Code(s): I10 - Essential (primary) hypertension
[2018-03-13] MEDS: Doxycycline 100 MG CAPSULE PO SCH (21:50)
[2018-03-13] MEDS: 0.9 % Sodium Chloride 1,000 ML IVC SCH (23:33)
[2018-03-13] MEDS: 0.9 % Sodium Chloride 500 ML IVC SCH (23:34)
[2018-03-14] MEDS: Piperacillin/Tazobactam 3.375 GM in 0.9 % Sodium Chloride Mini Bag 100 ML IVPB SCH (00:05)
[2018-03-14] MEDS: *HR* Heparin 5,000 UNIT/ML VIAL SQ SCH ×2 (06:02→17:04)
[2018-03-14] MEDS: Insulin LISPRO 300 UNITS/3 ML VIAL SQ SCH ×4 (10:51→21:23)
[2018-03-14] MEDS: Aspirin Enteric Coated 81 MG Tablet PO SCH (10:52)
[2018-03-14] MEDS: Doxycycline 100 MG CAPSULE PO SCH ×2 (10:52→21:22)
[2018-03-14] MEDS: Gabapentin 300 MG CAPSULE PO SCH ×3 (10:52→21:22)
[2018-03-14] MEDS: amLODIPine 5 MG TABLET PO SCH (10:53)
[2018-03-14] MEDS: Nicotine 21 MG PATCH.TD24 TD SCH (10:53)
[2018-03-14] MEDS: Insulin DETEMIR 100 UNIT/ML X5UNITS SQ SCH ×2 (10:55→21:22)
[2018-03-14 11:38] LABS: Basophils # 0.1 K/mcL (0.0-0.2); Basophils % 0.8 %; Eosinophils # 0.4 K/mcL (0.0-0.6); Eosinophils % 3.1 %; Hemoglobin 11.7 g/dL (12.9-16.9); Immature Granulocytes % 0.9 % (0-4); Lymphocytes # 1.9 K/mcL (0.6-4.6); Lymphocytes % 15.9 %; Mean Corpuscular HGB Conc 32.5 g/dL (31.6-35.5); Mean Corpuscular Volume 86.1 fL (83.0-100.0); Mean Platelet Volume 9.4 fL (9.4-12.4); Monocytes # 0.5 K/mcL (0.0-1.3); Monocytes % 4.4 %; Neutrophils # 8.8 K/mcL (1.6-8.9); Platelet Count 368 K/mcL (140-400); Red Blood Count 4.18 M/mcL (4.19-5.50); Red Cell Distribution Width 12.9 % (11.5-14.5); Segmented Neutrophils % 74.9 %
[2018-03-14 11:56] LABS: BUN/Creatinine Ratio 19 (6-26); Blood Urea Nitrogen 27 mg/dL (8-23); Calcium 9.1 mg/dL (8.6-10.3); Carbon Dioxide 24 mEq/L (23-29); Chloride 104 mEq/L (98-107); Glucose 258 mg/dL (70-105); Osmolality,Calculated 298 (280-300); Potassium 4.5 mEq/L (3.5-5.1); Sodium 137 mEq/L (136-145); eGFR For Non-African Americans 51 (> 60)
--- NOTE | 2018-03-14 16:04 | Discharge Summary ---
- NOTES TO OUTPATIENT PROVIDER Notes to Outpatient Provider: Wound care Orders not resulted at time of discharge: Pending orders 03/10/18 10:34 Culture,Anaerobic [RM] Stat Date of Encounter: 03/14/18 Time of Encounter: 11:00 - Discharge Diagnosis (1) Gluteal abscess Priority: Primary Status: Acute (2) Sepsis Priority: Primary Status: Resolved Qualifiers: Sepsis type: sepsis due to unspecified organism Qualified Code(s): A41.9 - Sepsis, unspecified organism (3) Hyperglycemia due to type 2 diabetes mellitus Priority: Secondary Status: Acute Qualifiers: Diabetes mellitus shelter insulin use: with shelter use Qualified Code(s): E11.65 - Type 2 diabetes mellitus with hyperglycemia; Z79.4 - termite control technician (current) use of insulin (4) Acute on chronic kidney failure Priority: Secondary Status: Resolved Qualifiers: Acute renal failure type: unspecified Chronic kidney disease stage: stage 3 (moderate) Qualified Code(s): N17.9 - Acute kidney failure, unspecified; N18.3 - Chronic kidney disease, stage 3 (moderate) (5) Tobacco abuse Priority: Secondary Status: Chronic (6) PAD (peripheral artery disease) Priority: Secondary Status: Chronic (7) Hypertension Priority: Secondary Status: Chronic Qualifiers: Hypertension type: essential hypertension Qualified Code(s): I10 - Essential (primary) hypertension Hospital course: Patient is a 62-year-old male with past medical history significant for diabetes, CKD stage III and tobacco use who presented to the ER on 03/11/18 due to left buttock ulcer. Patient noticed ulcer approximately 2-3 weeks ago but did not seek any medical advice. Patient became concerned when area began to drain purulent foul-sme lling drainage. Patient denied any fever or chills. In the ER, patient found to be afebrile with leukocytosis of 24, lactic acid 3.6, ESR/CRP of 80/151 respectively. Cr 1.96 (baseline ~ 1.5). Glucose 411. Urinalysis was unremarkable. CT abdomen and pelvis showed left gluteal abscess as well as non-organized fluid collection in posterior thigh, in addition to cellulitis over L greater trocha nteric region. Patient was given 2 L of fluid boluses, IV vancomycin/Zosyn, and admitted for further management. During patients hospital stay, general surgery was consulted for recommendations for incision and drainage and all pus was drained from abscess cavity is intact with iodoform tape. Physical therapy/occupational therapy was consulted for recommendations for [facility] at detention facility. Patient was being treated with IV antibiotics but was descalated to oral Doxy and patient will complete a 10 day course at the detention facility. She will need to follow up with wound care as an outpatient for iodoform packing of in size and drained area. - Time Spent with Patient Total time spent providing and/or coordinating discharge services: - Discharge Medications Prescriptions: Doxycycline 100 mg PO BID 10 Days #20 capsule Home Medications: Allopurinol [Zyloprim 100 MG] 100 mg PO DAILY 03/09/18 [History] Amlodipine Besylate 2.5 mg PO DAILY 03/09/18 [History] Diltiazem [Cardizem] 30 mg PO HS 03/09/18 [History] Furosemide [Lasix] 20 mg PO DAILY PRN 03/09/18 [History] Gabapentin [Neurontin] 300 mg PO TID 03/09/18 [History] Insulin Glargine,Hum.rec.anlog [Lantus Solostar] 50 unit SQ BID 03/09/18 [History] Insulin LISPRO [Humalog Kwikpen U-100] 0 - 20 unit SQ BID 03/09/18 [History] Metformin HCl [Glucophage] 1,000 mg PO BID 03/09/18 [History] Omeprazole [PriLOSEC] 20 mg PO DAILY 03/09/18 [History] hydroCHLOROthiazide [Hydrochlorothiazide] 25 mg PO DAILY 03/09/18 [History] Aspirin Enteric Coated [Aspirin EC] 81 mg PO DAILY tablet. 03/14/18 [Rx] Clopidogrel [Plavix] 75 mg PO DAILY tablet 03/14/18 [Rx] Doxycycline 100 mg PO BID 10 Days #20 capsule 03/14/18 [Rx] Nicotine Patch [Nicoderm] 21 mg TD DAILY patch.td24 03/14/18 [Rx] Allergies/Adverse Reactions: Allergy/AdvReac Type Severity Reaction Status Date / Time No Known Allergies Allergy Verified 02/22/18 12:17 Date of admission: 03/11/18 14:49 Primary care physician: PCP NONE Consults: 03/09/18 16:15 Consult to Surgery [CONS] Stat Consulting Provider: [facility] Reason for Consult: abscess Time Notified: 16:16 Call Completed: Yes 03/11/18 09:42 Consult to Occupational Therapy [CONS] Routine Comment: Evaluate, develop and implement POC Reason for Consult: sepsis, deconditioning Does patient have active BEDREST order?: No Is patient medically & hemodynamically stable?: Yes Consult to Physical Therapy [CONS] Routine Comment: Evaluate, develop and implement POC Reason for Consult: sepsis, deconditioning Does patient have active BEDREST order?: No Is patient medically & hemodynamically stable?: Yes 03/12/18 12:34 Consult to Supervisor Tunnel Heading [CONS] Routine Reason for SW Consult: DPOA for healthcare. - Constitutional Vitals: Temp Pulse Resp BP Pulse Ox 98.4 F 82 16 124/70 96 03/14/18 14:50 03/14/18 14:50 03/14/18 14:50 03/14/18 14:50 03/14/18 14:50 Exam: Gen.: Nonacute distress, alert and oriented 3 ENT: Mucosal membranes moist Skin: Normal color - Patient Status Disposition: Transfer SNF Condition: Fair - Discharge Instructions Follow Up With: NONE,PCP [Primary Care Provider] -
--- NOTE | 2018-03-14 16:06 | Physician Discharge Referral ---
ExtendedCare Referral Info Institutional Level of Care: Skilled - Diagnosis (1) Gluteal abscess Status: Acute (2) Sepsis Status: Resolved (3) Hyperglycemia due to type 2 diabetes mellitus Status: Acute (4) Acute on chronic kidney failure Status: Resolved (5) Tobacco abuse Status: Chronic (6) PAD (peripheral artery disease) Status: Chronic (7) Hypertension Status: Chronic - Transfer Medications Prescriptions: Doxycycline 100 mg PO BID 10 Days #20 capsule Home Medications: Allopurinol [Zyloprim 100 MG] 100 mg PO DAILY 03/09/18 [History] Amlodipine Besylate 2.5 mg PO DAILY 03/09/18 [History] Diltiazem [Cardizem] 30 mg PO HS 03/09/18 [History] Furosemide [Lasix] 20 mg PO DAILY PRN 03/09/18 [History] Gabapentin [Neurontin] 300 mg PO TID 03/09/18 [History] Insulin Glargine,Hum.rec.anlog [Lantus Solostar] 50 unit SQ BID 03/09/18 [History] Insulin LISPRO [Humalog Kwikpen U-100] 0 - 20 unit SQ BID 03/09/18 [History] Metformin HCl [Glucophage] 1,000 mg PO BID 03/09/18 [History] Omeprazole [PriLOSEC] 20 mg PO DAILY 03/09/18 [History] hydroCHLOROthiazide [Hydrochlorothiazide] 25 mg PO DAILY 03/09/18 [History] Aspirin Enteric Coated [Aspirin EC] 81 mg PO DAILY tablet. 03/14/18 [Rx] Clopidogrel [Plavix] 75 mg PO DAILY tablet 03/14/18 [Rx] Doxycycline 100 mg PO BID 10 Days #20 capsule 03/14/18 [Rx] Nicotine Patch [Nicoderm] 21 mg TD DAILY patch.td24 03/14/18 [Rx] Allergies/Adverse Reactions: Allergy/AdvReac Type Severity Reaction Status Date / Time No Known Allergies Allergy Verified 02/22/18 12:17 - Respiratory Orders Smoking Cessation: Smoking cessation has been advised. For more information, call the [place] Tobacco Quit Line at 8-174-ZQER-NOW. CERTIFICATION: I certify that the transfer of the above named patient to an Extended Care Facility is necessary for the continuing treatment of the diagnosis listed. The above information is true and accurate reflection of patient's current condition. Confidential - Redisclosure prohibited without a patient's written consent.
[2018-03-15] MEDS: *HR* Heparin 5,000 UNIT/ML VIAL SQ SCH ×2 (06:08→16:21)
[2018-03-15] MEDS: Doxycycline 100 MG CAPSULE PO SCH ×2 (08:25→21:35)
[2018-03-15] MEDS: Aspirin Enteric Coated 81 MG Tablet PO SCH (08:25)
[2018-03-15] MEDS: Gabapentin 300 MG CAPSULE PO SCH ×3 (08:25→21:35)
[2018-03-15] MEDS: amLODIPine 5 MG TABLET PO SCH (08:25)
[2018-03-15] MEDS: Insulin LISPRO 300 UNITS/3 ML VIAL SQ SCH ×3 (08:29→16:21)
[2018-03-15] MEDS: Insulin DETEMIR 100 UNIT/ML X5UNITS SQ SCH ×2 (08:41→21:36)
[2018-03-15] MEDS: Nicotine 21 MG PATCH.TD24 TD SCH (11:41)
--- NOTE | 2018-03-15 13:25 | Internal Med Progress Note ---
Hospitalist Progress Note - Encounter Date of Encounter: 03/15/18 Time of Encounter: 11:00 - Subjective Interval History: Patient with resolved sepsis secondary to gluteal abscess on to have grown MRSA He is now awaiting placement to [facility] for strengthening and conditioning. - Exam Vitals: Temp Pulse Resp BP Pulse Ox 98.4 F 74 16 154/73 95 03/15/18 11:18 03/15/18 11:18 03/15/18 11:18 03/15/18 11:18 03/15/18 11:18 Exam: Gen.: Nonacute distress, alert and oriented 3 Skin: Normal color - Assessment and Plan (1) Gluteal abscess Current Visit: Yes Status: Acute Assessment and Plan: CT evidence of left gluteal soft tissue measuring 6 cm in greatest dimension; cellulitis overlying the greater trochanter, and fluid collection within the soft tissue of the posterior left thigh s/p I and D by surgery 03/10/2018. Positive MRSA Patient will complete a course of doxycycline Patient awaiting placement to [facility] facility (2) Sepsis Current Visit: Yes Status: Resolved Assessment and Plan: Resolved; secondary to gluteal abscess. - Time Spent with Patient Total time spent is greater than 50% in coordination of care (as documented) at patient's floor/unit and/or counseling patient: Internal Medicine: Result - Labs CBC & Chem 7: 03/14/18 11:27 03/14/18 11:27 - Impressions Impressions Chest CT 03/14/18 11:30 IMPRESSION: Right 7th and 8th rib fractures may be acute or subacute. No acute pulmonary process. Multiple subsolid pulmonary nodules measuring up to 8 mm. RECOMMENDATIONS: Fleischner Society guidelines for follow-up and management of incidentally detected subsolid pulmonary nodules: Multiple subsolid nodules > than or equal to 6 mm - CT at 3-6 months. Subsequent management based on the most suspicious nodule(s). - Low risk patients include individuals with minimal or absent history of smoking and other known risk factors. - High risk patients include individuals with a history or smoking or known risk factors. Radiology 2017 http://pubs.rsna.org/doi/full/10.1148/radiol.[email or web address] D/ / 03/14/2018 13:14:54 Phi Velazquez MD / [email or web address] Interpreting Provider: Phi Velazquez MD Consult Discharge Plan - Plan Referrals: NONE,PCP [Primary Care Provider] - Prescriptions: Doxycycline 100 mg PO BID 10 Days #20 capsule (2) Sepsis Qualifiers: Sepsis type: sepsis due to unspecified organism Qualified Code(s): A41.9 - Sepsis, unspecified organism
[2018-03-16] MEDS: Insulin LISPRO 300 UNITS/3 ML VIAL SQ SCH ×4 (00:16→16:06)
[2018-03-16] MEDS: *HR* Heparin 5,000 UNIT/ML VIAL SQ SCH (07:00)
[2018-03-16] MEDS: amLODIPine 5 MG TABLET PO SCH (08:51)
[2018-03-16] MEDS: Aspirin Enteric Coated 81 MG Tablet PO SCH (08:52)
[2018-03-16] MEDS: Gabapentin 300 MG CAPSULE PO SCH ×2 (08:52→14:51)
[2018-03-16] MEDS: Doxycycline 100 MG CAPSULE PO SCH (08:52)
[2018-03-16] MEDS: Nicotine 21 MG PATCH.TD24 TD SCH (08:52)
[2018-03-16] MEDS: Insulin DETEMIR 100 UNIT/ML X5UNITS SQ SCH (09:02)
[2018-03-16 16:06] VITALS: BP 137/73
--- NOTE | 2018-03-16 20:01 | Internal Med Progress Note ---
Hospitalist Progress Note - Encounter Date of Encounter: 03/16/18 Time of Encounter: 11:00 - Subjective Interval History: Patient with resolved sepsis secondary to gluteal abscess on to have grown MRSA A peer to peer review was performed and insurance company will improve patient's placement at [facility] today - Exam Vitals: Temp Pulse Resp BP Pulse Ox 98.4 F 86 16 137/73 92 03/16/18 16:00 03/16/18 16:00 03/16/18 16:00 03/16/18 16:00 03/16/18 16:00 Exam: Gen.: Nonacute distress, alert and oriented 3 Skin: Normal color - Assessment and Plan (1) Gluteal abscess Status: Acute Assessment and Plan: CT evidence of left gluteal soft tissue measuring 6 cm in greatest dimension; cellulitis overlying the greater trochanter, and fluid collection within the soft tissue of the posterior left thigh s/p I and D by surgery 03/10/2018. Positive MRSA Patient will complete a course of doxycycline Patient awaiting placement to [facility] (2) Sepsis Status: Resolved Assessment and Plan: Resolved; secondary to gluteal abscess. - Time Spent with Patient Total time spent is greater than 50% in coordination of care (as documented) at patient's floor/unit and/or counseling patient: Internal Medicine: Result - Labs CBC & Chem 7: 03/14/18 11:27 03/14/18 11:27 Consult Discharge Plan - Plan Referrals: NONE,PCP [Primary Care Provider] - Prescriptions: Doxycycline 100 mg PO BID 10 Days #20 capsule (2) Sepsis Qualifiers: Sepsis type: sepsis due to unspecified organism Qualified Code(s): A41.9 - Sepsis, unspecified organism
== END 2018-03-16 17:48 | DRG 854 ==
LOC: 2NENU 11:11 → EMEROOARM 11:11 → SUATTDRO 19:31 → 2NENU 20:20 → SUATTDRO 03-11 14:49 → 2ANU 03-14 14:47
PROVIDERS: ADMIT Internal Medicine; ATTEND Hospitalist